=== PATIENT | male | born 1960 | race Caucasian/White ===

== ENCOUNTER 2018-11-26 08:55 | Observation (INO) | payer MEDICAID ==
[2018-11-26] MEDS ORDERED: Sodium Chloride 0.9% 10 ML Syringe FLUSH PRN (08:57)
[2018-11-26] MEDS ORDERED: Sodium Chloride 0.9% 2.5 ML Syringe FLUSH PRN (08:57)
[2018-11-26] MEDS ORDERED: Sodium Chloride 0.9% 1,000 ML IV ONE (08:57)
--- NOTE | 2018-11-26 09:22 | EDM.PDOC ---
ED HPI GENERAL MEDICAL PROBLEM - General Chief Complaint: Neurological Problem Stated Complaint: CHEST PAIN Time Seen by Provider: 11/26/18 10:18 - History of Present Illness INITIAL COMMENTS - FREE TEXT/NARRATIVE: HISTORY AND PHYSICAL: History of present illness: Patient is 58-year-old white male this hypertension who presents after an episode at work which became dizzy and fell he might pass out he was profusely diaphoretic he denies associated chest pain or shortness of breath he states he is improved significantly since arrival. Review of systems: As per history of present illness and below otherwise all systems reviewed and negative. Past medical history: As per history of present illness and as reviewed below otherwise noncontributory. Surgical history: As per history of present illness and as reviewed below otherwise noncontributory. Social history: No reported history of drug or alcohol abuse. Family history: As per history of present illness and as reviewed below otherwise noncontributory. Physical exam: HEENT: Atraumatic, normocephalic, pupils reactive, negative for conjunctival pallor or scleral icterus, mucous membranes moist, throat clear, neck supple, nontender, trachea midline. Lungs: Clear to auscultation, breath sounds equal bilaterally, chest nontender. Heart: S1S2, regular, negative for clicks, rubs, or JVD. Abdomen: Soft, nondistended, nontender. Negative for masses or hepatosplenomegaly. Negative for costovertebral tenderness. Pelvis: Stable nontender. Genitourinary: Deferred. Rectal: Deferred. Extremities: Atraumatic, negative for cords or calf pain. Neurovascular unremarkable. Neuro: Awake, alert, oriented. Cranial nerves II through XII unremarkable. Cerebellum unremarkable. Motor and sensory unremarkable throughout. Exam nonfocal. Diagnostics: CBC CMP troponin PT/INR chest x-ray EKG CT brain Therapeutics: IV O2 monitor Impression: # 1 near syncope Definitive disposition and diagnosis as appropriate pending reevaluation and review of above. Headache Pain Score (Numeric/FACES): 2 - Related Data Allergies Allergy/AdvReac Type Severity Reaction Status Date / Time No Known Allergies Allergy Verified 11/26/18 09:04 Home Meds: Home Meds Albuterol [Ventolin HFA] 1 - 2 inh INH ASDIRECTED PRN 12/22/14 [History] Aspirin [[place] Aspirin EC] 81 mg PO DAILY 12/22/14 [History] Cholecalciferol (Vitamin D3) [Vitamin D3] 1 tab PO DAILY 12/22/14 [History] Folic Acid 1 tab PO DAILY 12/22/14 [History] Hydrocodone/Acetaminophen [Hydrocodon-Acetaminophn 10-325] 1 tab PO BID [History] Iron Polysaccharide Complex [Poly-Iron] 1 tab PO DAILY 12/22/14 [History] Losartan/Hydrochlorothiazide [Losartan-HCTZ 100-12.5 MG] 1 tab PO DAILY [History] Methotrexate Sodium [Methotrexate] 6 tab PO WEEKLY 12/22/14 [History] Omeprazole [Prilosec] 1 tab PO DAILY 12/22/14 [History] amLODIPine Besylate [Amlodipine Besylate] 1 tab PO ACBREAKFAST 12/22/14 [History ] Past Medical History Other HEENT History: Reports deteriation of nasal passages 'lots of nasal drainage', Dicatation reports Obstructive Sleep apnea, pt reports "does not and never has used CPAP machine" Cardiovascular History: Reports: Hypertension Respiratory History: Reports: COPD Other Respiratory History: Tobacco dependence 40 yrs, currently down to 6 cigs per day Other Musculoskeletal History: hx: fracturing bone in hand x 2, History back injury, Low back pain; Poly arthritis Endocrine/Metabolic History: Reports: Diabetes, Type II Other Hematologic History: Microcytic anemia - Past Surgical History HEENT Surgical History: Reports: Adenoidectomy, Tonsillectomy Male Surgical History: Reports: Prostate Biopsy, Prostatectomy Social & Family History - Family History Family Medical History: Noncontributory - Tobacco Use Smoking Status *Q: Former Smoker Used Tobacco, but Quit: Yes Month/Year Tobacco Last Used: 2014 - Recreational Drug Use Recreational Drug Use: No ED ROS GENERAL - Review of Systems Review Of Systems: ROS reveals no pertinent complaints other than HPI. ED EXAM, GENERAL - Physical Exam Exam: See Below (See dictation) Course - Vital Signs Last Recorded V/S: Last Vital Signs Temp 36.0 C 11/26/18 09:01 Pulse 72 11/26/18 09:30 Resp 18 11/26/18 09:15 BP 162/58 H 11/26/18 09:30 Pulse Ox 96 11/26/18 09:30 - Orders/Labs/Meds Orders: Active Orders 24 hr Category Date Time Status EKG Documentation Completion [RC] STAT Care 11/26/18 08:58 Active UA W/MICROSCOPIC [URIN] Stat Lab 11/26/18 08:58 Ordered Sodium Chloride 0.9% [Saline Flush] Med 11/26/18 08:57 Active 10 ml FLUSH ASDIRECTED PRN Sodium Chloride 0.9% [Saline Flush] Med 11/26/18 08:57 Active 2.5 ml FLUSH ASDIRECTED PRN Saline Lock Insert [OM.PC] Stat Oth 11/26/18 08:57 Ordered Medication Orders Sodium Chloride (Saline Flush) 10 ml FLUSH ASDIRECTED PRN PRN Reason: Keep Vein Open Last Admin: 11/26/18 09:18 Dose: 10 ml Sodium Chloride (Saline Flush) 2.5 ml FLUSH ASDIRECTED PRN PRN Reason: Keep Vein Open Last Admin: 11/26/18 09:18 Dose: 2.5 ml Labs: Laboratory Tests 11/26/18 11/26/18 11/26/18 Range/Units 09:24 09:24 09:24 WBC 10.61 (4.0-11.0) K/uL RBC 5.41 (4.50-5.90) M/uL Hgb 15.3 (13.0-17.0) g/dL Hct 45.2 (38.0-50.0) % MCV 83.5 (80.0-98.0) fL MCH 28.3 (27.0-32.0) pg MCHC 33.8 (31.0-37.0) g/dL RDW Std Deviation 46.5 (28.0-62.0) fl RDW Coeff of [place]da 15 (11.0-15.0) % Plt Count 252 (150-400) K/uL MPV 9.90 (7.40-12.00) fL Neut % (Auto) 82.4 H (48.0-80.0) % Lymph % (Auto) 7.5 L (16.0-40.0) % [place] % (Auto) 9.1 (0.0-15.0) % Eos % (Auto) 0.8 (0.0-7.0) % Baso % (Auto) 0.2 (0.0-1.5) % Neut # (Auto) 8.7 H (1.4-5.7) K/uL Lymph # (Auto) 0.8 (0.6-2.4) K/uL [place] # (Auto) 1.0 H (0.0-0.8) K/uL Eos # (Auto) 0.1 (0.0-0.7) K/uL Baso # (Auto) 0.0 (0.0-0.1) K/uL Nucleated RBC % 0.0 /100WBC Nucleated RBCs # 0 K/uL INR 1.06 Sodium 143 (136-148) mmol/L Potassium 4.1 (3.5-5.1) mmol/L Chloride 107 (98-107) mmol/L Carbon Dioxide 26.7 (21.0-32.0) mmol/L BUN 13 (7.0-18.0) mg/dL Creatinine 0.8 (0.8-1.3) mg/dL Est Cr Clr Drug Dosing 91.81 mL/min Estimated GFR (MDRD) > 60.0 ml/min Glucose 137 H (74-106) mg/dL Calcium 9.4 (8.5-10.1) mg/dL Total Bilirubin 0.8 (0.2-1.0) mg/dL AST 22 (15-37) IU/L ALT 32 (14-63) IU/L Alkaline Phosphatase 87 (46-116) U/L Troponin I < 0.050 (0.000-0.056) ng/mL Total Protein 6.8 (6.4-8.2) g/dL Albumin 3.6 (3.4-5.0) g/dL Globulin 3.2 (2.6-4.0) g/dL Albumin/Globulin Ratio 1.1 (0.9-1.6) Meds: Medications Generic Name Dose Route Start Last Admin Trade Name Freq PRN Reason Stop Dose Admin Sodium Chloride 10 ml 11/26/18 08:57 11/26/18 09:18 Saline Flush FLUSH 10 ml ASDIRECTED PRN Administration Keep Vein Open Sodium Chloride 2.5 ml 11/26/18 08:57 11/26/18 09:18 Saline Flush FLUSH 2.5 ml ASDIRECTED PRN Administration Keep Vein Open Discontinued Medications Generic Name Dose Route Start Last Admin Trade Name Freq PRN Reason Stop Dose Admin Sodium Chloride 1,000 mls @ 999 mls/hr 11/26/18 08:57 11/26/18 09:18 Normal Saline IV 11/26/18 09:57 999 mls/hr BOLUS ONE Administration Departure - Departure Time of Disposition: 10:18 Disposition: Refer to Observation Condition: Good Clinical Impression: Near syncope - Discharge Information Referrals: PCP,Unknown [Primary Care Provider] - Forms: ED Department Discharge - My Orders Last 24 Hours: My Active Orders 11/26/18 08:57 Sodium Chloride 0.9% [Saline Flush] 10 ml FLUSH ASDIRECTED PRN Sodium Chloride 0.9% [Saline Flush] 2.5 ml FLUSH ASDIRECTED PRN Saline Lock Insert [OM.PC] Stat 11/26/18 08:58 EKG Documentation Completion [RC] STAT UA W/MICROSCOPIC [URIN] Stat - Assessment/Plan Last 24 Hours: My Active Orders 11/26/18 08:57 Sodium Chloride 0.9% [Saline Flush] 10 ml FLUSH ASDIRECTED PRN Sodium Chloride 0.9% [Saline Flush] 2.5 ml FLUSH ASDIRECTED PRN Saline Lock Insert [OM.PC] Stat 11/26/18 08:58 EKG Documentation Completion [RC] STAT UA W/MICROSCOPIC [URIN] Stat
[2018-11-26 10:14] LABS: BLOOD UREA NITROGEN,BUN 13 mg/dL (7.0-18.0); CARBON DIOXIDE,CO2 26.7 mmol/L (21.0-32.0); CHLORIDE,CL 107 mmol/L (98-107); GLUCOSE RANDOM 137 mg/dL (74-106); POTASSIUM,K 4.1 mmol/L (3.5-5.1); SODIUM,NA 143 mmol/L (136-148)
--- NOTE | 2018-11-26 10:15 | CR ---
INDICATION: Syncope. TECHNIQUE: Upright portable AP image of the chest. COMPARISON: 01/02/2015. FINDINGS: Lungs and pleural spaces clear. Heart, mediastinum and pulmonary vessels normal. No significant osseous abnormality. IMPRESSION: Negative chest. Dictated by Barry Padilla MD @ Nov 26 2018 10:12AM Signed by Dr. Barry Padilla @ Nov 26 2018 10:14AM
--- NOTE | 2018-11-26 10:15 | CT ---
INDICATION: Syncope. Headache. TECHNIQUE: Scanning of the head was performed without IV contrast material. COMPARISON: None. FINDINGS: No acute hemorrhage, parenchymal attenuation abnormality, or mass effect is demonstrated. Differentiation between the maldonado matter and white matter is preserved. The ventricles and other subarachnoid spaces are within normal limits for the patient`s age. No calvarial abnormality is evident. The visualized paranasal and mastoid sinuses are clear. IMPRESSION: Negative noncontrast head CT. Please note that all CT scans at this facility use dose modulation, iterative reconstruction, and/or weight-based dosing when appropriate to reduce radiation dose to as low as reasonably achievable. Dictated by Barry Padilla MD @ Nov 26 2018 10:10AM Signed by Dr. Barry Padilla @ Nov 26 2018 10:12AM
--- NOTE | 2018-11-26 10:57 | PCM.HP.2 ---
<Chasity Gonzalez - Last Filed: 11/26/18 11:13> H&P History of Present Illness - General Date of Service: 11/26/18 Admit Problem/Dx: Admission Diagnosis/Problem Admission Diagnosis/Problem Near syncope - History of Present Illness Initial Comments - Free Text/Narative: The patient is a 58 year old male with PMH of DMII, HTN, and COPD who presented with near syncope. 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 He forgot to take his medications this morning. He denies headache, fever/chills, chest pain, shortness of breath or abdominal pain. He does endorse watery diarrhea for 1 day. He also reports a lot stress with recent of his parents. He follows with Dr. Francis and reports his last hemoglobin A1c was 6.2%. Denies history of stroke or [place]. In the ER, work up included CBC, CMP, troponin within any significant findings. CXR showed no acute cardiopulmonary process. CT head showed no intracranial findings. He was given IVF in the ER. He reports elevated BP with systolic in the 190s on presentation which improved to systolic in 140s without intervention. PCP- Dr. Francis Headache Pain Score (Numeric/FACES): 2 - Related Data Allergies/Adverse Reactions: Allergies Allergy/AdvReac Type Severity Reaction Status Date / Time No Known Allergies Allergy Verified 11/26/18 11:31 Home Medications: Home Meds Aspirin [[place] Aspirin EC] 81 mg PO DAILY 12/22/14 [History] Cholecalciferol (Vitamin D3) [Vitamin D3] 1 tab PO DAILY 12/22/14 [History] Folic Acid 1 tab PO DAILY 12/22/14 [History] Methotrexate Sodium [Methotrexate] 6 tab PO WEEKLY 12/22/14 [History] amLODIPine Besylate [Amlodipine Besylate] 10 mg PO ACBREAKFAST 12/22/14 [History ] Losartan/Hydrochlorothiazide [Losartan-HCTZ 100-25 MG] 1 tab PO DAILY 11/26/18 [ History] Past Medical History Other HEENT History: Reports deteriation of nasal passages 'lots of nasal drainage', Dicatation reports Obstructive Sleep apnea, pt reports "does not and never has used CPAP machine" Cardiovascular History: Reports: Hypertension Respiratory History: Reports: COPD Other Respiratory History: Tobacco dependence 40 yrs, currently down to 6 cigs per day Other Musculoskeletal History: hx: fracturing bone in hand x 2, History back injury, Low back pain; Poly arthritis Endocrine/Metabolic History: Reports: Diabetes, Type II Other Hematologic History: Microcytic anemia - Past Surgical History HEENT Surgical History: Reports: Adenoidectomy, Tonsillectomy Male Surgical History: Reports: Prostate Biopsy, Prostatectomy Social & Family History - Family History Family Medical History: Noncontributory - Tobacco Use Smoking Status *Q: Former Smoker Used Tobacco, but Quit: Yes Month/Year Tobacco Last Used: 2014 - Alcohol Use Alcohol Use History: No - Recreational Drug Use Recreational Drug Use: No H&P Review of Systems - Review of Systems: Review Of Systems: See Below General: Reports: Diaphoresis. Denies: Fever, Chills HEENT: Reports: No Symptoms Pulmonary: Reports: No Symptoms Cardiovascular: Reports: No Symptoms Gastrointestinal: Reports: Diarrhea. Denies: Abdominal Pain, Constipation, Nausea Genitourinary: Reports: No Symptoms Musculoskeletal: Reports: No Symptoms Skin: Reports: No Symptoms Psychiatric: Reports: No Symptoms Neurological: Reports: Other (near syncope) Hematologic/Lymphatic: Reports: No Symptoms Immunologic: Reports: No Symptoms Exam - Exam Exam: See Below - Vital Signs Vital Signs: Last Vital Signs Temp 96.8 F 11/26/18 09:01 Pulse 72 11/26/18 09:30 Resp 18 11/26/18 09:15 BP 162/58 H 11/26/18 09:30 Pulse Ox 96 11/26/18 09:30 Weight: 107.048 kg - Exam General: Alert, Oriented, Cooperative HEENT: Conjunctiva Clear, EOMI, Mucosa Moist & [place], Posterior Pharynx Clear, Pupils Equal, Pupils Reactive Neck: Supple Lungs: Clear to Auscultation, Normal Respiratory Effort Cardiovascular: Regular Rate, Regular Rhythm GI/Abdominal Exam: Normal Bowel Sounds, Soft, Non-Tender, No Distention Extremities: No Pedal Edema Skin: Warm, Dry, Intact Neurological: Strength Equal Bilateral Neuro Extensive - Mental Status: Alert, Oriented x3, Normal Mood/Affect Neuro Extensive - Motor, Sensory, Reflexes: CN II-XII Intact Psychiatric: Alert, Normal Affect, Normal Mood - Patient Data Lab Results Last 24 hrs: Laboratory Results - last 24 hr 11/26/18 11/26/18 11/26/18 Range/Units 09:24 09:24 09:24 WBC 10.61 (4.0-11.0) K/uL RBC 5.41 (4.50-5.90) M/uL Hgb 15.3 (13.0-17.0) g/dL Hct 45.2 (38.0-50.0) % MCV 83.5 (80.0-98.0) fL MCH 28.3 (27.0-32.0) pg MCHC 33.8 (31.0-37.0) g/dL RDW Std Deviation 46.5 (28.0-62.0) fl RDW Coeff of [place] 15 (11.0-15.0) % Plt Count 252 (150-400) K/uL MPV 9.90 (7.40-12.00) fL Neut % (Auto) 82.4 H (48.0-80.0) % Lymph % (Auto) 7.5 L (16.0-40.0) % [place] % (Auto) 9.1 (0.0-15.0) % Eos % (Auto) 0.8 (0.0-7.0) % Baso % (Auto) 0.2 (0.0-1.5) % Neut # (Auto) 8.7 H (1.4-5.7) K/uL Lymph # (Auto) 0.8 (0.6-2.4) K/uL [place] # (Auto) 1.0 H (0.0-0.8) K/uL Eos # (Auto) 0.1 (0.0-0.7) K/uL Baso # (Auto) 0.0 (0.0-0.1) K/uL Nucleated RBC % 0.0 /100WBC Nucleated RBCs # 0 K/uL INR 1.06 Sodium 143 (136-148) mmol/L Potassium 4.1 (3.5-5.1) mmol/L Chloride 107 (98-107) mmol/L Carbon Dioxide 26.7 (21.0-32.0) mmol/L BUN 13 (7.0-18.0) mg/dL Creatinine 0.8 (0.8-1.3) mg/dL Est Cr Clr Drug Dosing 91.81 mL/min Estimated GFR (MDRD) > 60.0 ml/min Glucose 137 H (74-106) mg/dL Calcium 9.4 (8.5-10.1) mg/dL Total Bilirubin 0.8 (0.2-1.0) mg/dL AST 22 (15-37) IU/L ALT 32 (14-63) IU/L Alkaline Phosphatase 87 (46-116) U/L Troponin I < 0.050 (0.000-0.056) ng/mL Total Protein 6.8 (6.4-8.2) g/dL Albumin 3.6 (3.4-5.0) g/dL Globulin 3.2 (2.6-4.0) g/dL Albumin/Globulin Ratio 1.1 (0.9-1.6) Result Diagrams: 11/26/18 09:24 11/26/18 09:24 Problem List Initiated/Reviewed/Updated: Yes Orders Last 24hrs: Active Orders 24 hr Category Date Time Status Patient Status [ADT] Stat ADT 11/26/18 10:20 Active EKG Documentation Completion [RC] STAT Care 11/26/18 08:58 Active UA W/MICROSCOPIC [URIN] Stat Lab 11/26/18 08:58 Ordered Sodium Chloride 0.9% [Saline Flush] Med 11/26/18 08:57 Active 10 ml FLUSH ASDIRECTED PRN Sodium Chloride 0.9% [Saline Flush] Med 11/26/18 08:57 Active 2.5 ml FLUSH ASDIRECTED PRN Saline Lock Insert [OM.PC] Stat Oth 11/26/18 08:57 Ordered Medication Orders Sodium Chloride (Saline Flush) 10 ml FLUSH ASDIRECTED PRN PRN Reason: Keep Vein Open Last Admin: 11/26/18 09:18 Dose: 10 ml Sodium Chloride (Saline Flush) 2.5 ml FLUSH ASDIRECTED PRN PRN Reason: Keep Vein Open Last Admin: 11/26/18 09:18 Dose: 2.5 ml Assessment/Plan Comment:: 1. Admit for observation 2. Code status-Full 3. Vitals per routine 4. I/Os per routine 5. Diet- Diabetic 6. DVT prophylaxis with lovenox 7. Near syncope-possibility due to hypoglycemia vs cardiac arrhythmia vs HTN- Will get CTA of head, obtain orthostatic BPs, monitor on telemetry 8. Diarrhea- obtain stool studies, continue IVF 9.HTN- continue home meds 10. DMII- hold metformin, place on sliding scale and accuchecks <Lb Rivas - Last Filed: 11/26/18 16:36> H&P History of Present Illness - General Admit Problem/Dx: Admission Diagnosis/Problem Admission Diagnosis/Problem Near syncope I have seen and examined the patient independently of chief medical director, Dr. Carlos DO. I have reviewed and agree with the plan of care as outlined for this patient by her. I have discussed the case with her. Please see orders. Exam - Vital Signs Vital Signs: Last Vital Signs Temp 36.8 C 11/26/18 14:57 Pulse 70 11/26/18 14:57 Resp 16 11/26/18 14:57 BP 150/73 H 11/26/18 14:57 Pulse Ox 97 11/26/18 14:57 Orthostatic Blood Pressure [ 164/69 Standing] Orthostatic Blood Pressure [ 163/71 Sitting] Orthostatic Blood Pressure [ 219/68 Supine] - Patient Data Lab Results Last 24 hrs: Laboratory Results - last 24 hr 11/26/18 11/26/18 11/26/18 Range/Units 09:24 09:24 09:24 WBC 10.61 (4.0-11.0) K/uL RBC 5.41 (4.50-5.90) M/uL Hgb 15.3 (13.0-17.0) g/dL Hct 45.2 (38.0-50.0) % MCV 83.5 (80.0-98.0) fL MCH 28.3 (27.0-32.0) pg MCHC 33.8 (31.0-37.0) g/dL RDW Std Deviation 46.5 (28.0-62.0) fl RDW Coeff of [place] 15 (11.0-15.0) % Plt Count 252 (150-400) K/uL MPV 9.90 (7.40-12.00) fL Neut % (Auto) 82.4 H (48.0-80.0) % Lymph % (Auto) 7.5 L (16.0-40.0) % [place] % (Auto) 9.1 (0.0-15.0) % Eos % (Auto) 0.8 (0.0-7.0) % Baso % (Auto) 0.2 (0.0-1.5) % Neut # (Auto) 8.7 H (1.4-5.7) K/uL Lymph # (Auto) 0.8 (0.6-2.4) K/uL [place] # (Auto) 1.0 H (0.0-0.8) K/uL Eos # (Auto) 0.1 (0.0-0.7) K/uL Baso # (Auto) 0.0 (0.0-0.1) K/uL Nucleated RBC % 0.0 /100WBC Nucleated RBCs # 0 K/uL INR 1.06 Sodium 143 (136-148) mmol/L Potassium 4.1 (3.5-5.1) mmol/L Chloride 107 (98-107) mmol/L Carbon Dioxide 26.7 (21.0-32.0) mmol/L BUN 13 (7.0-18.0) mg/dL Creatinine 0.8 (0.8-1.3) mg/dL Est Cr Clr Drug Dosing 91.81 mL/min Estimated GFR (MDRD) > 60.0 ml/min Glucose 137 H (74-106) mg/dL POC Glucose (60-110) mg/dL Calcium 9.4 (8.5-10.1) mg/dL Total Bilirubin 0.8 (0.2-1.0) mg/dL AST 22 (15-37) IU/L ALT 32 (14-63) IU/L Alkaline Phosphatase 87 (46-116) U/L Troponin I < 0.050 (0.000-0.056) ng/mL Total Protein 6.8 (6.4-8.2) g/dL Albumin 3.6 (3.4-5.0) g/dL Globulin 3.2 (2.6-4.0) g/dL Albumin/Globulin Ratio 1.1 (0.9-1.6) Urine Color Urine Appearance Urine pH (5.0-8.0) Ur Specific [place] (1.001-1.035) Urine Protein (NEGATIVE) mg/dL Urine Glucose (UA) (NEGATIVE) mg/dL Urine Ketones (NEGATIVE) mg/dL Urine Occult Blood (NEGATIVE) Urine Nitrite (NEGATIVE) Urine Bilirubin (NEGATIVE) Urine Urobilinogen (<2.0) EU/dL Ur Leukocyte Esterase (NEGATIVE) Urine RBC (0-2/HPF) Urine WBC (0-5/HPF) Ur Epithelial Cells (NONE-FEW) Urine Bacteria (NEGATIVE) Urine Mucus (NONE-MOD) 11/26/18 11/26/18 11/26/18 Range/Units 12:02 12:30 16:25 WBC (4.0-11.0) K/uL RBC (4.50-5.90) M/uL Hgb (13.0-17.0) g/dL Hct (38.0-50.0) % MCV (80.0-98.0) fL MCH (27.0-32.0) pg MCHC (31.0-37.0) g/dL RDW Std Deviation (28.0-62.0) fl RDW Coeff of [place] (11.0-15.0) % Plt Count (150-400) K/uL MPV (7.40-12.00) fL Neut % (Auto) (48.0-80.0) % Lymph % (Auto) (16.0-40.0) % [place] % (Auto) (0.0-15.0) % Eos % (Auto) (0.0-7.0) % Baso % (Auto) (0.0-1.5) % Neut # (Auto) (1.4-5.7) K/uL Lymph # (Auto) (0.6-2.4) K/uL [place] # (Auto) (0.0-0.8) K/uL Eos # (Auto) (0.0-0.7) K/uL Baso # (Auto) (0.0-0.1) K/uL Nucleated RBC % /100WBC Nucleated RBCs # K/uL INR Sodium (136-148) mmol/L Potassium (3.5-5.1) mmol/L Chloride (98-107) mmol/L Carbon Dioxide (21.0-32.0) mmol/L BUN (7.0-18.0) mg/dL Creatinine (0.8-1.3) mg/dL Est Cr Clr Drug Dosing mL/min Estimated GFR (MDRD) ml/min Glucose (74-106) mg/dL POC Glucose 100 134 H (60-110) mg/dL Calcium (8.5-10.1) mg/dL Total Bilirubin (0.2-1.0) mg/dL AST (15-37) IU/L ALT (14-63) IU/L Alkaline Phosphatase (46-116) U/L Troponin I (0.000-0.056) ng/mL Total Protein (6.4-8.2) g/dL Albumin (3.4-5.0) g/dL Globulin (2.6-4.0) g/dL Albumin/Globulin Ratio (0.9-1.6) Urine Color YELLOW Urine Appearance CLEAR Urine pH 6.5 (5.0-8.0) Ur Specific [place] 1.025 (1.001-1.035) Urine Protein NEGATIVE (NEGATIVE) mg/dL Urine Glucose (UA) NEGATIVE (NEGATIVE) mg/dL Urine Ketones TRACE H (NEGATIVE) mg/dL Urine Occult Blood NEGATIVE (NEGATIVE) Urine Nitrite NEGATIVE (NEGATIVE) Urine Bilirubin NEGATIVE (NEGATIVE) Urine Urobilinogen 1.0 (<2.0) EU/dL Ur Leukocyte Esterase NEGATIVE (NEGATIVE) Urine RBC 0-1 (0-2/HPF) Urine WBC 0-2 (0-5/HPF) Ur Epithelial Cells RARE (NONE-FEW) Urine Bacteria FEW (NEGATIVE) Urine Mucus MODERATE (NONE-MOD) Result Diagrams: 11/26/18 09:24 11/26/18 09:24 Orders Last 24hrs: Active Orders 24 hr Category Date Time Status Patient Status [ADT] Stat ADT 11/26/18 10:20 Active Accu Check [Blood Glucose Check, Bedside] [RC] TIDMEALS Care 11/26/18 11:09 Active Cardiac Monitoring [RC] . DIRECTED Care 11/26/18 11:07 Active EKG Documentation Completion [RC] STAT Care 11/26/18 08:58 Active Intake and Output [RC] Q12H Care 11/26/18 11:07 Active Orthostatic Vital Signs [RC] ASDIRECTED Care 11/26/18 11:07 Active Vital Signs [RC] Q4H Care 11/26/18 11:07 Active [place] Diet [DIET] Diet 11/26/18 Dinner Active BASIC METABOLIC PANEL,BMP [CHEM] AM Lab 11/27/18 05:11 Ordered CBC WITH AUTO DIFF [HEME] AM Lab 11/27/18 05:11 Ordered CDIFF TOX A+B [OP] Routine Lab 11/26/18 11:07 Ordered CULTURE STOOL + CAMPY+SHIGATOX [RM] Routine Lab 11/26/18 11:07 Ordered Albuterol [Ventolin HFA] Med 11/26/18 11:10 Active 0 gm INH Q4H PRN Enoxaparin [Lovenox] Med 11/26/18 11:15 Active 40 mg SUBCUT Q24H Folic Acid Med 11/26/18 11:15 Active 1 mg PO DAILY Hydrochlorothiazide/Losartan [Hyzaar 50-12.5 MG] Med 11/26/18 14:35 Active 2 tab PO DAILY Insulin Aspart [NovoLOG] Med 11/26/18 11:30 Active See Protocol SUBCUT TIDAC Iron Polysaccharides Complex [Ferrex 150] Med 11/26/18 11:15 Active 150 mg PO DAILY Omeprazole Med 11/26/18 11:15 Active 20 mg PO DAILY Sodium Chloride 0.9% [Normal Saline] 1,000 ml Med 11/26/18 11:15 Active IV ASDIRECTED Sodium Chloride 0.9% [Saline Flush] Med 11/26/18 08:57 Active 10 ml FLUSH ASDIRECTED PRN Sodium Chloride 0.9% [Saline Flush] Med 11/26/18 08:57 Active 2.5 ml FLUSH ASDIRECTED PRN amLODIPine [Norvasc] Med 11/26/18 14:35 Active 10 mg PO ACBREAKFAST Isolation [COMM] Stat Oth 11/26/18 11:08 Ordered Saline Lock Insert [OM.PC] Stat Oth 11/26/18 08:57 Ordered Resuscitation Status Routine Resus Stat 11/26/18 11:07 Ordered Medication Orders Albuterol (Ventolin Hfa) 0 gm INH Q4H PRN PRN Reason: Shortness of Breath Amlodipine Besylate (Norvasc) 10 mg PO ACBREAKFAST GENET Last Admin: 11/26/18 14:56 Dose: 10 mg Enoxaparin Sodium (Lovenox) 40 mg SUBCUT Q24H [facility]ET Last Admin: 11/26/18 11:52 Dose: 40 mg Folic Acid (Folic Acid) 1 mg PO DAILY [facility] Last Admin: 11/26/18 11:51 Dose: 1 mg HCTZ/Losartan Potassium (Hyzaar 50-12.5 Mg) 2 tab PO DAILY [facility] Last Admin: 11/26/18 14:55 Dose: 2 tab Sodium Chloride (Normal Saline) 1,000 mls @ 125 mls/hr IV ASDIRECTED [facility] Last Admin: 11/26/18 11:32 Dose: 125 mls/hr Insulin Aspart (Novolog) 0 unit SUBCUT TIDAC [facility]; Protocol Last Admin: 11/26/18 16:32 Dose: Not Given Admin: 11/26/18 12:19 Dose: Not Given Omeprazole (Omeprazole) 20 mg PO DAILY [facility] Last Admin: 11/26/18 11:52 Dose: 20 mg Polysaccharide Iron Complex (Ferrex 150) 150 mg PO DAILY [facility] Last Admin: 11/26/18 11:52 Dose: 150 mg Sodium Chloride (Saline Flush) 10 ml FLUSH ASDIRECTED PRN PRN Reason: Keep Vein Open Last Admin: 11/26/18 09:18 Dose: 10 ml Sodium Chloride (Saline Flush) 2.5 ml FLUSH ASDIRECTED PRN PRN Reason: Keep Vein Open Last Admin: 11/26/18 09:18 Dose: 2.5 ml
[2018-11-26] MEDS ORDERED: Albuterol 8 GM Inhaler INH PRN (11:10)
[2018-11-26] MEDS ORDERED: Iron Polysaccharides Complex 150 MG Cap PO SCH (11:15)
[2018-11-26] MEDS ORDERED: AMLODIPINE PO SCH (11:30)
[2018-11-26] MEDS: Sodium Chloride 0.9% 1,000 ML IV SCH ×2 (11:32→20:00)
[2018-11-26] MEDS: Folic Acid 1 MG Tab PO SCH (11:51)
[2018-11-26] MEDS: Omeprazole 20 MG Cap.CR PO SCH (11:52)
[2018-11-26] MEDS: Enoxaparin 40 MG/0.4 ML Syringe SUBCUT SCH (11:52)
[2018-11-26] MEDS: Insulin Aspart 100 Units/ML 3 ML Pen SUBCUT SCH ×2 (12:19→16:32)
[2018-11-26] MEDS ORDERED: Iopamidol 755 MG/ML 500 ML Multipack Bottle IVPUSH STA (13:01)
--- NOTE | 2018-11-26 13:34 | CT ---
INDICATION: Near-syncope. TECHNIQUE: CT angiography of the head with 100 cc of Isovue 370. Coronal and sagittal reformats were included. COMPARISON: Contrast CT head performed earlier in the day, 11/26/2018. FINDINGS: The bilateral anterior cerebral arteries are widely patent. A recurrent artery of [place] is noted. There is a very small anterior communicating artery. The bilateral middle cerebral arteries are widely patent. Atherosclerotic irregularity within the cavernous internal carotid arteries contributes to [id number] narrowing. Intracranial internal carotid arteries elsewhere are widely patent. Scattered atherosclerotic calcifications within the intradural vertebral arteries without significant stenosis. Basilar artery is widely patent. The bilateral posterior cerebral arteries are widely patent. The posterior communicating arteries are hypoplastic or absent. No aneurysm or vascular malformation. IMPRESSION: 1. No occlusion or high-grade stenosis of the intracranial arterial circulation. Mild to moderate narrowing of the bilateral cavernous ICA`s secondary to calcific atherosclerotic changes. Please note that all CT scans at this facility use dose modulation, iterative reconstruction, and/or weight-based dosing when appropriate to reduce radiation dose to as low as reasonably achievable. Dictated by Darwin Clemente MD @ Nov 26 2018 1:25PM Signed by Dr. Darwin Clemente @ Nov 26 2018 1:33PM
[2018-11-26] MEDS: Hydrochlorothiazide/Losartan 12.5-50 mg Tab PO SCH (14:55)
[2018-11-26] MEDS: amLODIPine 5 MG Tab PO SCH (14:56)
[2018-11-26] MEDS ORDERED: Acetaminophen 325 MG Tab PO PRN (17:30)
[2018-11-26] MEDS ORDERED: Ondansetron 4 MG/2 ML SDV IVPUSH PRN (17:31)
[2018-11-27] MEDS: Sodium Chloride 0.9% 1,000 ML IV SCH ×2 (04:16→12:11)
[2018-11-27] MEDS: amLODIPine 5 MG Tab PO SCH (06:39)
[2018-11-27 06:41] LABS: BLOOD UREA NITROGEN,BUN 6 mg/dL (7.0-18.0); CARBON DIOXIDE,CO2 26.4 mmol/L (21.0-32.0); CHLORIDE,CL 106 mmol/L (98-107); GLUCOSE RANDOM 149 mg/dL (74-106); POTASSIUM,K 3.6 mmol/L (3.5-5.1); SODIUM,NA 141 mmol/L (136-148)
[2018-11-27] MEDS: Insulin Aspart 100 Units/ML 3 ML Pen SUBCUT SCH ×2 (07:33→14:36)
[2018-11-27] MEDS: Omeprazole 20 MG Cap.CR PO SCH (09:15)
[2018-11-27] MEDS: Hydrochlorothiazide/Losartan 12.5-50 mg Tab PO SCH (09:15)
[2018-11-27] MEDS: Folic Acid 1 MG Tab PO SCH (09:16)
[2018-11-27] MEDS: Enoxaparin 40 MG/0.4 ML Syringe SUBCUT SCH (11:32)
[2018-11-27] MEDS ORDERED: Losartan 50 MG Tab PO SCH (13:00)
[2018-11-27 13:40] VITALS: BP 160/70
--- NOTE | 2018-11-27 15:44 | PCM.DCSUM1 ---
<Jose Son - Last Filed: 11/27/18 15:38> Discharge Summary - Hospital Course Free Text/Narrative:: Discharge summary Admission date: November 27, 2018 Discharge date: November 28, 2018 Admission diagnoses:near syncope: possibly secondary to hypoglycemia versus cardiac arrhythmia versus hypertension Diarrhea Hypertension Type 2 diabetes Discharge diagnoses: diarrhea with dehydration secondary to Campylobacter:improving near syncope most likely secondary to hypoglycemia:improving Past medical history of hypertension, type 2 diabetes procedures: none Consultations: none Hospital course: Pt. is a 58-year-old male with past medical history of type 2 diabetes hypertension,, COPD, arthritis presented to [facility] ED with a near-syncope. Patient was at work when he noticed that he was feeling diaphoretic and dizzy and noticed his vision was getting darker. Patient otherwise denies any fevers, chills, body aches, chest pain, shortness of breath. Does endorse diarrhea for 1 week. On admission patient was given fluid, found to have elevated blood pressure; patient was restarted home medication with resolution of his blood pressure and tachycardia. CTA head: within normal limits. Stool studies showed Campylobacter; following morning patient was stable; initiated on azithromycin 500 mg daily 3 days. Advised to not miss medication dosages, and to avoid work for one week secondary to Campylobacter infection. patient endorses missing/ forgetting to take his home medications. Repeat orthostatics were within normal limits. Advised to followed PCP within 1 week. discharge instructions: patient was followed physical 1 week. Advised to contact notify provider if symptoms of fever, chills, bodies, dizziness, headache, chest pain, shortness of breath develop. Follow-up: patient was followed PCP within 1-2 weeks. Discharge medications: Aspirin [[place] Aspirin EC] 81 mg PO DAILY 12/22/14 [History] Cholecalciferol (Vitamin D3) [Vitamin D3] 1 tab PO DAILY 12/22/14 [History] Folic Acid 1 tab PO DAILY 12/22/14 [History] Methotrexate Sodium [Methotrexate] 6 tab PO WEEKLY 12/22/14 [History] amLODIPine Besylate [Amlodipine Besylate] 10 mg PO ACBREAKFAST 12/22/14 [History ] Losartan/Hydrochlorothiazide [Losartan-HCTZ 100-25 MG] 1 tab PO DAILY 11/26/18 [ History] Acetaminophen [Tylenol] 650 mg PO Q4H PRN tablet 11/27/18 [Rx] Albuterol [Ventolin HFA] 0 gm INH Q4H PRN inhaler 11/27/18 [Rx] Azithromycin 500 mg PO DAILY 3 Days #3 tablet 11/27/18 [Rx] Hydrochlorothiazide/Losartan [Hyzaar 50-12.5 MG] 2 tab PO DAILY tablet [Rx] Omeprazole 20 mg PO DAILY cap.cr 11/27/18 [Rx] - Discharge Data Discharge Date: 11/27/18 Discharge Disposition: Home, Self-Care 01 Condition: Good - Patient Instructions Driving: Do Not Drive Notify Provider of: Fever, Increased Pain, Swelling and Redness, Drainage, Nausea and/or Vomiting Other/Special Instructions: patient advised to notify provider if symptoms of fever, chills, body aches, low blood sugar, sweats or diarrhea not resolving after one week. Advised to also contact provider of chest pain or shortness of breath to develop. advised to drink plenty of fluids as well and to avoid others especially at work because of he diarrhea. Patient is not allowed to go back to work for one week or until diarrhea completely resolves. Patient advised to eat 3 meals a day; not to miss doses of medications; and to follow with PCP within one week. - Discharge Plan *PRESCRIPTION DRUG MONITORING PROGRAM REVIEWED*: No *COPY OF PRESCRIPTION DRUG MONITORING REPORT IN PATIENT ROSE: No Prescriptions/Med Rec: Azithromycin 500 mg PO DAILY 3 Days #3 tablet Home Medications: Home Meds Aspirin [[place] Aspirin EC] 81 mg PO DAILY 12/22/14 [History] Cholecalciferol (Vitamin D3) [Vitamin D3] 1 tab PO DAILY 12/22/14 [History] Folic Acid 1 tab PO DAILY 12/22/14 [History] Methotrexate Sodium [Methotrexate] 6 tab PO WEEKLY 12/22/14 [History] amLODIPine Besylate [Amlodipine Besylate] 10 mg PO ACBREAKFAST 12/22/14 [History ] Losartan/Hydrochlorothiazide [Losartan-HCTZ 100-25 MG] 1 tab PO DAILY 11/26/18 [ History] Acetaminophen [Tylenol] 650 mg PO Q4H PRN tablet 11/27/18 [Rx] Albuterol [Ventolin HFA] 0 gm INH Q4H PRN inhaler 11/27/18 [Rx] Azithromycin 500 mg PO DAILY 3 Days #3 tablet 11/27/18 [Rx] Hydrochlorothiazide/Losartan [Hyzaar 50-12.5 MG] 2 tab PO DAILY tablet [Rx] Omeprazole 20 mg PO DAILY cap.cr 11/27/18 [Rx] Patient Handouts: Near-Syncope, Campylobacter Gastroenteritis, Azithromycin tablets Forms: ED Department Discharge Referrals: PCP,Unknown [Primary Care Provider] - (Please call [facility] on Thursday and make a 'hospital follow up' appointment with your primary care physician for 7-10 days from now. ([phone])) - Discharge Summary/Plan Comment DC Time >30 min.: No - Patient Data Vitals - Most Recent: Last Vital Signs Temp 98.1 F 11/27/18 12:00 Pulse 62 11/27/18 13:39 Resp 16 11/27/18 12:00 BP 160/70 H 11/27/18 13:39 Pulse Ox 93 L 11/27/18 12:00 Orthostatic Blood Pressure [ 164/69 Standing] Orthostatic Blood Pressure [ 163/71 Sitting] Orthostatic Blood Pressure [ 219/68 Supine] Weight - Most Recent: 108 kg I&O - Last 24 hours: Intake & Output 11/27/18 11/27/18 11/27/18 06:59 14:59 22:59 Intake Total 2173 Output Total 2425 Balance -252 Lab Results - Last 24 hrs: Laboratory Results - last 24 hr 11/26/18 11/27/18 11/27/18 Range/Units 16:25 05:50 05:50 WBC 8.82 (4.0-11.0) K/uL RBC 5.32 (4.50-5.90) M/uL Hgb 14.7 (13.0-17.0) g/dL Hct 44.4 (38.0-50.0) % MCV 83.5 (80.0-98.0) fL MCH 27.6 (27.0-32.0) pg MCHC 33.1 (31.0-37.0) g/dL RDW Std Deviation 46.3 (28.0-62.0) fl RDW Coeff of [place] 15 (11.0-15.0) % Plt Count 241 (150-400) K/uL MPV 10.00 (7.40-12.00) fL Neut % (Auto) 83.8 H (48.0-80.0) % Lymph % (Auto) 9.5 L (16.0-40.0) % [place] % (Auto) 5.3 (0.0-15.0) % Eos % (Auto) 1.2 (0.0-7.0) % Baso % (Auto) 0.2 (0.0-1.5) % Neut # (Auto) 7.4 H (1.4-5.7) K/uL Lymph # (Auto) 0.8 (0.6-2.4) K/uL [place] # (Auto) 0.5 (0.0-0.8) K/uL Eos # (Auto) 0.1 (0.0-0.7) K/uL Baso # (Auto) 0.0 (0.0-0.1) K/uL Nucleated RBC % 0.0 /100WBC Nucleated RBCs # 0 K/uL Sodium 141 (136-148) mmol/L Potassium 3.6 (3.5-5.1) mmol/L Chloride 106 (98-107) mmol/L Carbon Dioxide 26.4 (21.0-32.0) mmol/L BUN 6 L (7.0-18.0) mg/dL Creatinine 0.7 L (0.8-1.3) mg/dL Est Cr Clr Drug Dosing 104.92 mL/min Estimated GFR (MDRD) > 60.0 ml/min Glucose 149 H (74-106) mg/dL POC Glucose 134 H (60-110) mg/dL Calcium 8.9 (8.5-10.1) mg/dL 11/27/18 Range/Units 12:32 WBC (4.0-11.0) K/uL RBC (4.50-5.90) M/uL Hgb (13.0-17.0) g/dL Hct (38.0-50.0) % MCV (80.0-98.0) fL MCH (27.0-32.0) pg MCHC (31.0-37.0) g/dL RDW Std Deviation (28.0-62.0) fl RDW Coeff of [place] (11.0-15.0) % Plt Count (150-400) K/uL MPV (7.40-12.00) fL Neut % (Auto) (48.0-80.0) % Lymph % (Auto) (16.0-40.0) % [place] % (Auto) (0.0-15.0) % Eos % (Auto) (0.0-7.0) % Baso % (Auto) (0.0-1.5) % Neut # (Auto) (1.4-5.7) K/uL Lymph # (Auto) (0.6-2.4) K/uL [place] # (Auto) (0.0-0.8) K/uL Eos # (Auto) (0.0-0.7) K/uL Baso # (Auto) (0.0-0.1) K/uL Nucleated RBC % /100WBC Nucleated RBCs # K/uL Sodium (136-148) mmol/L Potassium (3.5-5.1) mmol/L Chloride (98-107) mmol/L Carbon Dioxide (21.0-32.0) mmol/L BUN (7.0-18.0) mg/dL Creatinine (0.8-1.3) mg/dL Est Cr Clr Drug Dosing mL/min Estimated GFR (MDRD) ml/min Glucose (74-106) mg/dL POC Glucose 96 (60-110) mg/dL Calcium (8.5-10.1) mg/dL JACQUELYN Results - Last 24 hrs: Microbiology 11/26/18 17:45 Campylobacter Antigen Assay - Final Stool / Feces Positive Campylobacter Ag Shiga Toxin I - Final NEGATIVE FOR SHIGA TOXIN 1 REFERENCE RANGE: NEGATIVE Shiga Toxin II - Final NEGATIVE FOR SHIGA TOXIN 2 REFERENCE RANGE: NEGATIVE 11/26/18 17:45 Clostridium difficile Toxin A & B - Final Stool / Feces Negative for C.Diff Toxin/AG REFERENCE RANGE: NEGATIVE Med Orders - Current: Current Medications Acetaminophen (Tylenol) 650 mg PO Q4H PRN PRN Reason: Pain/Fever Albuterol (Ventolin Hfa) 0 gm INH Q4H PRN PRN Reason: Shortness of Breath Amlodipine Besylate (Norvasc) 10 mg PO ACBREAKFAST [facility] Last Admin: 11/27/18 06:39 Dose: 10 mg Enoxaparin Sodium (Lovenox) 40 mg SUBCUT Q24H [facility] Last Admin: 11/27/18 11:32 Dose: 40 mg Folic Acid (Folic Acid) 1 mg PO DAILY [facility] Last Admin: 11/27/18 09:16 Dose: 1 mg HCTZ/Losartan Potassium (Hyzaar 50-12.5 Mg) 2 tab PO DAILY [facility] Last Admin: 11/27/18 09:15 Dose: 2 tab Sodium Chloride (Normal Saline) 1,000 mls @ 125 mls/hr IV ASDIRECTED [facility] Last Admin: 11/27/18 12:11 Dose: 125 mls/hr Insulin Aspart (Novolog) 0 unit SUBCUT TIDAC [facility]; Protocol Last Admin: 11/27/18 14:36 Dose: Not Given Omeprazole (Omeprazole) 20 mg PO DAILY [facility] Last Admin: 11/27/18 09:15 Dose: 20 mg Ondansetron HCl (Zofran) 4 mg IVPUSH Q4H PRN PRN Reason: Nausea/Vomiting Sodium Chloride (Saline Flush) 10 ml FLUSH ASDIRECTED PRN PRN Reason: Keep Vein Open Last Admin: 11/26/18 09:18 Dose: 10 ml Sodium Chloride (Saline Flush) 2.5 ml FLUSH ASDIRECTED PRN PRN Reason: Keep Vein Open Last Admin: 11/26/18 09:18 Dose: 2.5 ml Discontinued Medications Sodium Chloride (Normal Saline) 1,000 mls @ 999 mls/hr IV BOLUS ONE Stop: 11/26/18 09:57 Last Admin: 11/26/18 09:18 Dose: 999 mls/hr Iopamidol (Isovue Multipack-370 (76%)) 100 ml IVPUSH ONETIME STA Stop: 11/26/18 13:02 Last Admin: 11/26/18 13:02 Dose: 100 ml Non-Formulary Medication (Amlodipine) 1 tab PO ACBREAKFAST [facility] Last Admin: 11/26/18 12:52 Dose: Not Given Non-Formulary Medication (Losartan/Hydrochlorothiazide [Losartan-Hctz 100-12.5 Mg]) 1 tab PO DAILY [facility] Last Admin: 11/26/18 12:51 Dose: Not Given Non-Formulary Medication (Losartan/Hydrochlorothiazide [Losartan-Hctz 100-25 Mg] ) 1 tab PO DAILY [facility] Last Admin: 11/26/18 14:28 Dose: Not Given Polysaccharide Iron Complex (Ferrex 150) 150 mg PO DAILY [facility] Last Admin: 11/26/18 11:52 Dose: 150 mg <Lb Rivas - Last Filed: 11/27/18 15:52> Discharge Summary - Hospital Course HPI Initial Comments: I have examined the patient independently of medical artist, Dr. Huy MD. I have discussed the case with him. I have reviewed and agree with the plan of care as outlined for the patient by him. Please see orders. - Patient Data Vitals - Most Recent: Last Vital Signs Temp 36.7 C 11/27/18 12:00 Pulse 62 11/27/18 13:39 Resp 16 11/27/18 12:00 BP 160/70 H 11/27/18 13:39 Pulse Ox 93 L 11/27/18 12:00 Orthostatic Blood Pressure [ 164/69 Standing] Orthostatic Blood Pressure [ 163/71 Sitting] Orthostatic Blood Pressure [ 219/68 Supine] I&O - Last 24 hours: Intake & Output 11/27/18 11/27/18 11/27/18 06:59 14:59 22:59 Intake Total 2173 Output Total 2425 Balance -252 Lab Results - Last 24 hrs: Laboratory Results - last 24 hr 11/26/18 11/27/18 11/27/18 Range/Units 16:25 05:50 05:50 WBC 8.82 (4.0-11.0) K/uL RBC 5.32 (4.50-5.90) M/uL Hgb 14.7 (13.0-17.0) g/dL Hct 44.4 (38.0-50.0) % MCV 83.5 (80.0-98.0) fL MCH 27.6 (27.0-32.0) pg MCHC 33.1 (31.0-37.0) g/dL RDW Std Deviation 46.3 (28.0-62.0) fl RDW Coeff of [place] 15 (11.0-15.0) % Plt Count 241 (150-400) K/uL MPV 10.00 (7.40-12.00) fL Neut % (Auto) 83.8 H (48.0-80.0) % Lymph % (Auto) 9.5 L (16.0-40.0) % [place] % (Auto) 5.3 (0.0-15.0) % Eos % (Auto) 1.2 (0.0-7.0) % Baso % (Auto) 0.2 (0.0-1.5) % Neut # (Auto) 7.4 H (1.4-5.7) K/uL Lymph # (Auto) 0.8 (0.6-2.4) K/uL [place] # (Auto) 0.5 (0.0-0.8) K/uL Eos # (Auto) 0.1 (0.0-0.7) K/uL Baso # (Auto) 0.0 (0.0-0.1) K/uL Nucleated RBC % 0.0 /100WBC Nucleated RBCs # 0 K/uL Sodium 141 (136-148) mmol/L Potassium 3.6 (3.5-5.1) mmol/L Chloride 106 (98-107) mmol/L Carbon Dioxide 26.4 (21.0-32.0) mmol/L BUN 6 L (7.0-18.0) mg/dL Creatinine 0.7 L (0.8-1.3) mg/dL Est Cr Clr Drug Dosing 104.92 mL/min Estimated GFR (MDRD) > 60.0 ml/min Glucose 149 H (74-106) mg/dL POC Glucose 134 H (60-110) mg/dL Calcium 8.9 (8.5-10.1) mg/dL 11/27/18 11/27/18 Range/Units 12:32 15:37 WBC (4.0-11.0) K/uL RBC (4.50-5.90) M/uL Hgb (13.0-17.0) g/dL Hct (38.0-50.0) % MCV (80.0-98.0) fL MCH (27.0-32.0) pg MCHC (31.0-37.0) g/dL RDW Std Deviation (28.0-62.0) fl RDW Coeff of O[place]da (11.0-15.0) % Plt Count (150-400) K/uL MPV (7.40-12.00) fL Neut % (Auto) (48.0-80.0) % Lymph % (Auto) (16.0-40.0) % [place] % (Auto) (0.0-15.0) % Eos % (Auto) (0.0-7.0) % Baso % (Auto) (0.0-1.5) % Neut # (Auto) (1.4-5.7) K/uL Lymph # (Auto) (0.6-2.4) K/uL [place] # (Auto) (0.0-0.8) K/uL Eos # (Auto) (0.0-0.7) K/uL Baso # (Auto) (0.0-0.1) K/uL Nucleated RBC % /100WBC Nucleated RBCs # K/uL Sodium (136-148) mmol/L Potassium (3.5-5.1) mmol/L Chloride (98-107) mmol/L Carbon Dioxide (21.0-32.0) mmol/L BUN (7.0-18.0) mg/dL Creatinine (0.8-1.3) mg/dL Est Cr Clr Drug Dosing mL/min Estimated GFR (MDRD) ml/min Glucose (74-106) mg/dL POC Glucose 96 165 H (60-110) mg/dL Calcium (8.5-10.1) mg/dL JACQUELYN Results - Last 24 hrs: Microbiology 11/26/18 17:45 Campylobacter Antigen Assay - Final Stool / Feces Positive Campylobacter Ag Shiga Toxin I - Final NEGATIVE FOR SHIGA TOXIN 1 REFERENCE RANGE: NEGATIVE Shiga Toxin II - Final NEGATIVE FOR SHIGA TOXIN 2 REFERENCE RANGE: NEGATIVE 11/26/18 17:45 Clostridium difficile Toxin A & B - Final Stool / Feces Negative for C.Diff Toxin/AG REFERENCE RANGE: NEGATIVE Med Orders - Current: Current Medications Acetaminophen (Tylenol) 650 mg PO Q4H PRN PRN Reason: Pain/Fever Albuterol (Ventolin Hfa) 0 gm INH Q4H PRN PRN Reason: Shortness of Breath Amlodipine Besylate (Norvasc) 10 mg PO ACBREAKFAST [facility] Last Admin: 11/27/18 06:39 Dose: 10 mg Enoxaparin Sodium (Lovenox) 40 mg SUBCUT Q24H [facility] Last Admin: 11/27/18 11:32 Dose: 40 mg Folic Acid (Folic Acid) 1 mg PO DAILY [facility] Last Admin: 11/27/18 09:16 Dose: 1 mg HCTZ/Losartan Potassium (Hyzaar 50-12.5 Mg) 2 tab PO DAILY [facility] Last Admin: 11/27/18 09:15 Dose: 2 tab Sodium Chloride (Normal Saline) 1,000 mls @ 125 mls/hr IV ASDIRECTED [facility] Last Admin: 11/27/18 12:11 Dose: 125 mls/hr Insulin Aspart (Novolog) 0 unit SUBCUT TIDAC [facility]; Protocol Last Admin: 11/27/18 14:36 Dose: Not Given Omeprazole (Omeprazole) 20 mg PO DAILY [facility] Last Admin: 11/27/18 09:15 Dose: 20 mg Ondansetron HCl (Zofran) 4 mg IVPUSH Q4H PRN PRN Reason: Nausea/Vomiting Sodium Chloride (Saline Flush) 10 ml FLUSH ASDIRECTED PRN PRN Reason: Keep Vein Open Last Admin: 11/26/18 09:18 Dose: 10 ml Sodium Chloride (Saline Flush) 2.5 ml FLUSH ASDIRECTED PRN PRN Reason: Keep Vein Open Last Admin: 11/26/18 09:18 Dose: 2.5 ml Discontinued Medications Sodium Chloride (Normal Saline) 1,000 mls @ 999 mls/hr IV BOLUS ONE Stop: 11/26/18 09:57 Last Admin: 11/26/18 09:18 Dose: 999 mls/hr Iopamidol (Isovue Multipack-370 (76%)) 100 ml IVPUSH ONETIME STA Stop: 11/26/18 13:02 Last Admin: 11/26/18 13:02 Dose: 100 ml Non-Formulary Medication (Amlodipine) 1 tab PO ACBREAKFAST [facility] Last Admin: 11/26/18 12:52 Dose: Not Given Non-Formulary Medication (Losartan/Hydrochlorothiazide [Losartan-Hctz 100-12.5 Mg]) 1 tab PO DAILY [facility] Last Admin: 11/26/18 12:51 Dose: Not Given Non-Formulary Medication (Losartan/Hydrochlorothiazide [Losartan-Hctz 100-25 Mg] ) 1 tab PO DAILY [facility] Last Admin: 11/26/18 14:28 Dose: Not Given Polysaccharide Iron Complex (Ferrex 150) 150 mg PO DAILY [facility] Last Admin: 11/26/18 11:52 Dose: 150 mg
== END 2018-11-27 16:00 | disposition home or self-care (01) ==
LOC: MW.ED 08:55 → MW.MS 10:37
PROVIDERS: ADMIT Internal Medicine; ATTEND Internal Medicine
DX: R55 Syncope and collapse (principal); A04.5 Campylobacter enteritis; E86.0 Dehydration; I10 Essential (primary) hypertension; E11.9 Type 2 diabetes mellitus without complications; J44.9 Chronic obstructive pulmonary disease, unspecified; M19.90 Unspecified osteoarthritis, unspecified site; Z87.891 Personal history of nicotine dependence; Z79.82 Long term (current) use of aspirin; Z79.899 Other long term (current) drug therapy
CPT/HCPCS: 36415; 70450; 70496; 71045; 80048; 80053; 81001; 82962; 84484; 85025; 85610; 87046; 87324; 87899; 93005; 94660; 96360; 99285; A9270; J1650; J7040; Q9967; 96361; 96372; G0378

== ENCOUNTER 2019-01-07 10:45 | Observation (INO) | payer OTHER ==
[2019-01-07] MEDS ORDERED: Sodium Chloride 0.9% 1,000 ML IV ONE (11:06)
--- NOTE | 2019-01-07 11:11 | EDM.PDOC ---
ED HPI GENERAL MEDICAL PROBLEM - General Chief Complaint: Skin Complaint Stated Complaint: RASH Time Seen by Provider: 01/07/19 11:01 - History of Present Illness INITIAL COMMENTS - FREE TEXT/NARRATIVE: HISTORY AND PHYSICAL: History of present illness: Patient is a 58-year-old white male who presents with concern of rash on his right forearm with erythema and proximal extension worse over last several days he denies fever chills nausea vomiting he is currently on Augmentin for upper respiratory infection as prescribed by Dr. 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 Review of systems: As per history of present illness and below otherwise all systems reviewed and negative. Past medical history: As per history of present illness and as reviewed below otherwise noncontributory. Surgical history: As per history of present illness and as reviewed below otherwise noncontributory. Social history: No reported history of drug or alcohol abuse. Family history: As per history of present illness and as reviewed below otherwise noncontributory. Physical exam: HEENT: Atraumatic, normocephalic, pupils reactive, negative for conjunctival pallor or scleral icterus, mucous membranes moist, throat clear, neck supple, nontender, trachea midline. Lungs: Clear to auscultation, breath sounds equal bilaterally, chest nontender. Heart: S1S2, regular, negative for clicks, rubs, or JVD. Abdomen: Soft, nondistended, nontender. Negative for masses or hepatosplenomegaly. Negative for costovertebral tenderness. Pelvis: Stable nontender. Genitourinary: Deferred. Rectal: Deferred. Extremities: Patient has a 4 x 7 area of erythema right forearm volar aspect with lymphangitic spread proximally to the level of the elbow CMS neurovascular exam is unremarkable Neuro: Awake, alert, oriented. Cranial nerves II through XII unremarkable. Cerebellum unremarkable. Motor and sensory unremarkable throughout. Exam nonfocal. Diagnostics: CBC CMP blood culture 2 lactic acid x-ray right forearm Therapeutics: Saline 1 L bolus Impression: #1 cellulitis right forearm with ascending lymphangitis Definitive disposition and diagnosis as appropriate pending reevaluation and review of above. right forearm Pain Score (Numeric/FACES): 10 - Related Data Allergies Allergy/AdvReac Type Severity Reaction Status Date / Time No Known Allergies Allergy Verified 01/07/19 10:55 Home Meds: Home Meds Aspirin [[place] Aspirin EC] 81 mg PO DAILY 12/22/14 [History] Cholecalciferol (Vitamin D3) [Vitamin D3] 1 tab PO DAILY 12/22/14 [History] Folic Acid 1 tab PO DAILY 12/22/14 [History] Methotrexate Sodium [Methotrexate] 6 tab PO WEEKLY 12/22/14 [History] amLODIPine Besylate [Amlodipine Besylate] 10 mg PO ACBREAKFAST 12/22/14 [History ] Losartan/Hydrochlorothiazide [Losartan-HCTZ 100-25 MG] 1 tab PO DAILY 11/26/18 [ History] Acetaminophen [Tylenol] 650 mg PO Q4H PRN tablet 11/27/18 [Rx] Albuterol [Ventolin HFA] 0 gm INH Q4H PRN inhaler 11/27/18 [Rx] Hydrochlorothiazide/Losartan [Hyzaar 50-12.5 MG] 2 tab PO DAILY tablet [Rx] Omeprazole 20 mg PO DAILY cap.cr 11/27/18 [Rx] Amoxicillin/Clavulanate K [Augmentin 875-125 MG] 1 tab ASDIRECTED 01/07/19 [ History] Past Medical History Other HEENT History: Reports deteriation of nasal passages 'lots of nasal drainage', Dicatation reports Obstructive Sleep apnea Cardiovascular History: Reports: Hypertension Respiratory History: Reports: COPD Other Respiratory History: Tobacco dependence 40 yrs Musculoskeletal History: Reports: Other (See Below) Other Musculoskeletal History: hx: fracturing bone in hand x 2, History back injury, Low back pain; Poly arthritis Endocrine/Metabolic History: Reports: Diabetes, Type II Other Hematologic History: Microcytic anemia Oncologic (Cancer) History: Reports: Prostate - Past Surgical History HEENT Surgical History: Reports: Adenoidectomy, Tonsillectomy Cardiovascular Surgical History: Reports: None GI Surgical History: Reports: Colonoscopy, EGD Male Surgical History: Reports: Prostate Biopsy, Prostatectomy Social & Family History - Family History Family Medical History: Noncontributory - Tobacco Use Smoking Status *Q: Former Smoker Used Tobacco, but Quit: Yes Month/Year Tobacco Last Used: 2014 - Caffeine Use Caffeine Use: Reports: Coffee - Recreational Drug Use Recreational Drug Use: No ED ROS GENERAL - Review of Systems Review Of Systems: ROS reveals no pertinent complaints other than HPI. ED EXAM, SKIN/RASH Exam: See Below (See dictation) Course - Vital Signs Last Recorded V/S: Last Vital Signs Temp 36.2 C 01/07/19 10:52 Pulse 77 01/07/19 10:52 Resp 18 01/07/19 10:52 BP 160/82 H 01/07/19 10:52 Pulse Ox 95 01/07/19 10:52 - Orders/Labs/Meds Orders: Active Orders 24 hr Category Date Time Status COMPREHENSIVE METABOLIC PN,CMP [CHEM] Stat Lab 01/07/19 11:40 Received CULTURE BLOOD [BC] Stat Lab 01/07/19 11:40 Received CULTURE BLOOD [BC] Stat Lab 01/07/19 12:03 Received Blood Culture x2 Reflex Set [OM.PC] Stat Oth 01/07/19 11:06 Ordered Labs: Laboratory Tests 01/07/19 01/07/19 Range/Units 11:40 11:40 WBC 9.29 (4.0-11.0) K/uL RBC 5.11 (4.50-5.90) M/uL Hgb 14.6 (13.0-17.0) g/dL Hct 42.8 (38.0-50.0) % MCV 83.8 (80.0-98.0) fL MCH 28.6 (27.0-32.0) pg MCHC 34.1 (31.0-37.0) g/dL RDW Std Deviation 44.6 (28.0-62.0) fl RDW Coeff of [place] 15 (11.0-15.0) % Plt Count 261 (150-400) K/uL MPV 10.30 (7.40-12.00) fL Neut % (Auto) 79.9 (48.0-80.0) % Lymph % (Auto) 8.1 L (16.0-40.0) % E[place] % (Auto) 9.8 (0.0-15.0) % Eos % (Auto) 1.8 (0.0-7.0) % Baso % (Auto) 0.4 (0.0-1.5) % Neut # (Auto) 7.4 H (1.4-5.7) K/uL Lymph # (Auto) 0.8 (0.6-2.4) K/uL Emanuel # (Auto) 0.9 H (0.0-0.8) K/uL Eos # (Auto) 0.2 (0.0-0.7) K/uL Baso # (Auto) 0.0 (0.0-0.1) K/uL Nucleated RBC % 0.0 /100WBC Nucleated RBCs # 0 K/uL Lactate 1.1 (0.20-2.00) mmol/L Meds: Medications Discontinued Medications Generic Name Dose Route Start Last Admin Trade Name Freq PRN Reason Stop Dose Admin Sodium Chloride 1,000 mls @ 999 mls/hr 01/07/19 11:06 01/07/19 11:28 Normal Saline IV 01/07/19 12:06 999 mls/hr STAT ONE Administration Departure - Departure Time of Disposition: 12:10 Disposition: Refer to Observation Condition: Good Clinical Impression: Cellulitis, Ascending lymphangitis - Discharge Information Referrals: Gabriel Francis MD [Primary Care Provider] - Forms: ED Department Discharge - My Orders Last 24 Hours: My Active Orders 01/07/19 11:06 Blood Culture x2 Reflex Set [OM.PC] Stat 01/07/19 11:40 COMPREHENSIVE METABOLIC PN,CMP [CHEM] Stat CULTURE BLOOD [BC] Stat 01/07/19 12:03 CULTURE BLOOD [BC] Stat - Assessment/Plan Last 24 Hours: My Active Orders 01/07/19 11:06 Blood Culture x2 Reflex Set [OM.PC] Stat 01/07/19 11:40 COMPREHENSIVE METABOLIC PN,CMP [CHEM] Stat CULTURE BLOOD [BC] Stat 01/07/19 12:03 CULTURE BLOOD [BC] Stat
--- NOTE | 2019-01-07 12:00 | CR ---
Right forearm: Two views of the right forearm were obtained. Comparison: No previous forearm study. Soft tissue swelling appears to be present. No acute fracture or other abnormality is seen. Impression: 1. Soft tissue swelling. 2. Note acute bony abnormality is seen. Diagnostic code #2 MTDD
[2019-01-07 12:14] LABS: BLOOD UREA NITROGEN,BUN 11 mg/dL (7.0-18.0); CARBON DIOXIDE,CO2 27.4 mmol/L (21.0-32.0); CHLORIDE,CL 102 mmol/L (98-107); GLUCOSE RANDOM 122 mg/dL (74-106); POTASSIUM,K 3.2 mmol/L (3.5-5.1); SODIUM,NA 139 mmol/L (136-148)
[2019-01-07] MEDS ORDERED: Albuterol 8 GM Inhaler INH PRN (15:05)
[2019-01-07] MEDS ORDERED: Acetaminophen 325 MG Tab PO PRN (15:05)
[2019-01-07] MEDS ORDERED: cefTRIAXone 1 GM in Premix Bag 1 BAG IV ONE (15:06)
[2019-01-07] MEDS ORDERED: Potassium Chloride 20 MEQ Tab.ER PO ONE (15:09)
--- NOTE | 2019-01-07 15:10 | PCM.HP.2 ---
H&P History of Present Illness - General Date of Service: 01/07/19 Admit Problem/Dx: Admission Diagnosis/Problem Admission Diagnosis/Problem Cellulitis - History of Present Illness Initial Comments - Free Text/Narative: 58 yo male with pmh of DMII, HTN, and COPD, arthritis who presents with two day history of rash on right arm. Patient reported a quater size spot of erythema on his arm yesterday that expanded to be about 4 cm by 3 cm area on the ventral aspect of his arm. He currently is taking Augmentin for a respiratory tract infection which he says has clear up. He denies any fevers or chills. He denies any trauma to the arm. right forearm Pain Score (Numeric/FACES): 10 - Related Data Allergies/Adverse Reactions: Allergies Allergy/AdvReac Type Severity Reaction Status Date / Time No Known Allergies Allergy Verified 01/07/19 10:55 Home Medications: Home Meds Aspirin [[place] Aspirin EC] 81 mg PO DAILY 12/22/14 [History] Cholecalciferol (Vitamin D3) [Vitamin D3] 1 tab PO DAILY 12/22/14 [History] Folic Acid 1 tab PO DAILY 12/22/14 [History] Methotrexate Sodium [Methotrexate] 6 tab PO WEEKLY 12/22/14 [History] amLODIPine Besylate [Amlodipine Besylate] 10 mg PO ACBREAKFAST 12/22/14 [History ] Losartan/Hydrochlorothiazide [Losartan-HCTZ 100-25 MG] 1 tab PO DAILY 11/26/18 [ History] Acetaminophen [Tylenol] 650 mg PO Q4H PRN tablet 11/27/18 [Rx] Albuterol [Ventolin HFA] 0 gm INH Q4H PRN inhaler 11/27/18 [Rx] Hydrochlorothiazide/Losartan [Hyzaar 50-12.5 MG] 2 tab PO DAILY tablet [Rx] Omeprazole 20 mg PO DAILY cap.cr 11/27/18 [Rx] Amoxicillin/Clavulanate K [Augmentin 875-125 MG] 1 tab ASDIRECTED 01/07/19 [ History] Past Medical History Other HEENT History: Reports deteriation of nasal passages 'lots of nasal drainage', Dicatation reports Obstructive Sleep apnea Cardiovascular History: Reports: Hypertension Respiratory History: Reports: COPD Other Respiratory History: Tobacco dependence 40 yrs Musculoskeletal History: Reports: Other (See Below) Other Musculoskeletal History: hx: fracturing bone in hand x 2, History back injury, Low back pain; Poly arthritis Endocrine/Metabolic History: Reports: Diabetes, Type II Other Hematologic History: Microcytic anemia Oncologic (Cancer) History: Reports: Prostate - Past Surgical History HEENT Surgical History: Reports: Adenoidectomy, Tonsillectomy Cardiovascular Surgical History: Reports: None GI Surgical History: Reports: Colonoscopy, EGD Male Surgical History: Reports: Prostate Biopsy, Prostatectomy Social & Family History - Family History Family Medical History: Noncontributory - Tobacco Use Smoking Status *Q: Former Smoker Used Tobacco, but Quit: Yes Month/Year Tobacco Last Used: 2014 Second Hand Smoke Exposure: Yes - Caffeine Use Caffeine Use: Reports: Coffee, Soda - Recreational Drug Use Recreational Drug Use: No H&P Review of Systems - Review of Systems: Review Of Systems: ROS reveals no pertinent complaints other than HPI. Exam - Exam Exam: See Below - Vital Signs Vital Signs: Last Vital Signs Temp 36.2 C 01/07/19 12:40 Pulse 65 01/07/19 12:40 Resp 17 01/07/19 12:40 BP 165/75 H 01/07/19 12:40 Pulse Ox 95 01/07/19 12:40 Weight: 110.087 kg - Exam General: Alert, Oriented HEENT: Mucosa Moist & [place] Neck: Supple Lungs: Clear to Auscultation, Normal Respiratory Effort Cardiovascular: Regular Rate, Regular Rhythm GI/Abdominal Exam: Soft, Non-Tender Extremities: Non-Tender, No Pedal Edema Skin: Other (4 by 3 cm area of erythema over ventral right forarm) - Patient Data Lab Results Last 24 hrs: Laboratory Results - last 24 hr 01/07/19 01/07/19 01/07/19 Range/Units 11:40 11:40 11:40 WBC 9.29 (4.0-11.0) K/uL RBC 5.11 (4.50-5.90) M/uL Hgb 14.6 (13.0-17.0) g/dL Hct 42.8 (38.0-50.0) % MCV 83.8 (80.0-98.0) fL MCH 28.6 (27.0-32.0) pg MCHC 34.1 (31.0-37.0) g/dL RDW Std Deviation 44.6 (28.0-62.0) fl RDW Coeff of [place] 15 (11.0-15.0) % Plt Count 261 (150-400) K/uL MPV 10.30 (7.40-12.00) fL Neut % (Auto) 79.9 (48.0-80.0) % Lymph % (Auto) 8.1 L (16.0-40.0) % [place] % (Auto) 9.8 (0.0-15.0) % Eos % (Auto) 1.8 (0.0-7.0) % Baso % (Auto) 0.4 (0.0-1.5) % Neut # (Auto) 7.4 H (1.4-5.7) K/uL Lymph # (Auto) 0.8 (0.6-2.4) K/uL [place] # (Auto) 0.9 H (0.0-0.8) K/uL Eos # (Auto) 0.2 (0.0-0.7) K/uL Baso # (Auto) 0.0 (0.0-0.1) K/uL Nucleated RBC % 0.0 /100WBC Nucleated RBCs # 0 K/uL Lactate 1.1 (0.20-2.00) mmol/L Sodium 139 (136-148) mmol/L Potassium 3.2 L (3.5-5.1) mmol/L Chloride 102 (98-107) mmol/L Carbon Dioxide 27.4 (21.0-32.0) mmol/L BUN 11 (7.0-18.0) mg/dL Creatinine 0.7 L (0.8-1.3) mg/dL Est Cr Clr Drug Dosing 104.92 mL/min Estimated GFR (MDRD) > 60.0 ml/min Glucose 122 H (74-106) mg/dL Calcium 9.0 (8.5-10.1) mg/dL Total Bilirubin 0.6 (0.2-1.0) mg/dL AST 34 (15-37) IU/L ALT 58 (14-63) IU/L Alkaline Phosphatase 86 (46-116) U/L Total Protein 7.2 (6.4-8.2) g/dL Albumin 3.5 (3.4-5.0) g/dL Globulin 3.7 (2.6-4.0) g/dL Albumin/Globulin Ratio 0.9 (0.9-1.6) Result Diagrams: 01/07/19 11:40 01/07/19 11:40 Problem List Initiated/Reviewed/Updated: Yes Orders Last 24hrs: Active Orders 24 hr Category Date Time Status Patient Status [ADT] Stat ADT 01/07/19 12:11 Active Antiembolic Devices [RC] PER UNIT ROUTINE Care 01/07/19 15:08 Ordered Blood Glucose Check, Bedside [RC] TIDMEALS Care 01/07/19 15:08 Ordered Oxygen Therapy [RC] PRN Care 01/07/19 15:08 Ordered Up ad Linsey [RC] ASDIRECTED Care 01/07/19 15:08 Ordered VTE/DVT Education [RC] PER UNIT ROUTINE Care 01/07/19 15:08 Ordered Vital Signs [RC] Q4H Care 01/07/19 15:08 Ordered [place] [employer] Diet [DIET] Diet 01/07/19 Breakfast Ordered BASIC METABOLIC PANEL,BMP [CHEM] AM Lab 01/08/19 05:11 Ordered CBC WITH AUTO DIFF [HEME] AM Lab 01/08/19 05:11 Ordered CULTURE BLOOD [BC] Stat Lab 01/07/19 11:40 Received CULTURE BLOOD [BC] Stat Lab 01/07/19 12:03 Received Acetaminophen [Tylenol] Med 01/07/19 15:05 Ordered 650 mg PO Q4H PRN Albuterol [Ventolin HFA] Med 01/07/19 15:05 Ordered 1 gm INH Q4H PRN Aspirin [Halfprin] Med 01/08/19 09:00 Ordered 81 mg PO DAILY Insulin Aspart [NovoLOG] Med 01/07/19 17:00 Ordered See Protocol SUBCUT TIDAC Losartan/Hydrochlorothiazide [Losartan-HCTZ 100-25 MG] Med 01/08/19 09:00 Ordered 1 tab PO DAILY Omeprazole Med 01/08/19 09:00 Ordered 20 mg PO DAILY Pharmacy to Dose - Vancomycin Med 01/07/19 15:15 Ordered 1 dose .XX ASDIRECTED Potassium Chloride [Klor-Con M20] Med 01/07/19 15:09 Once 40 meq PO ONETIME ONE amLODIPine Med 01/08/19 07:30 Ordered 10 mg PO ACBREAKFAST cefTRIAXone [Rocephin] 1 gm Med 01/07/19 15:06 Ordered Sodium Chloride 0.9% [Normal Saline] 50 ml IV ONETIME Blood Culture x2 Reflex Set [OM.PC] Stat Oth 01/07/19 11:06 Ordered Sequential Compression Device [OM.PC] Per Unit Routine Oth 01/07/19 15:08 Ordered Resuscitation Status Routine Resus Stat 01/07/19 15:08 Ordered Medication Orders Acetaminophen (Tylenol) 650 mg PO Q4H PRN PRN Reason: Pain/Fever Albuterol (Ventolin Hfa) 1 gm INH Q4H PRN PRN Reason: Shortness of Breath Aspirin (Halfprin) 81 mg PO DAILY [facility] Ceftriaxone Sodium 1 gm/ (Sodium Chloride) 50 mls @ 100 mls/hr IV ONETIME ONE Stop: 01/07/19 15:35 Insulin Aspart (Novolog) 0 unit SUBCUT TIDAC [facility]; Protocol Non-Formulary Medication (Amlodipine) 10 mg PO ACBREAKFAST [facility] Non-Formulary Medication (Losartan/Hydrochlorothiazide [Losartan-Hctz 100-25 Mg] ) 1 tab PO DAILY [facility] Omeprazole (Omeprazole) 20 mg PO DAILY [facility] Potassium Chloride (Klor-Con M20) 40 meq PO ONETIME ONE Stop: 01/07/19 15:10 Vancomycin HCl (Pharmacy To Dose - Vancomycin) 1 dose .XX ASDIRECTED [facility] Assessment/Plan Comment:: 58 yo male admitted for right arm cellulitis. We will treat with Vancomycin.
[2019-01-07] MEDS: Insulin Aspart 100 Units/ML 3 ML Pen SUBCUT SCH (17:01)
[2019-01-08 07:14] LABS: BLOOD UREA NITROGEN,BUN 8 mg/dL (7.0-18.0); CARBON DIOXIDE,CO2 28.2 mmol/L (21.0-32.0); CHLORIDE,CL 104 mmol/L (98-107); GLUCOSE RANDOM 151 mg/dL (74-106); POTASSIUM,K 4.1 mmol/L (3.5-5.1); SODIUM,NA 139 mmol/L (136-148)
[2019-01-08] MEDS ORDERED: amLODIPine 5 MG Tab PO SCH (07:30)
[2019-01-08] MEDS ORDERED: Omeprazole 20 MG Cap.CR PO SCH (07:30)
--- NOTE | 2019-01-08 07:56 | PCM.DCSUM1 ---
Discharge Summary - Hospital Course HPI Initial Comments: The patient was admitted secondary to cellulitis of his right forearm which failed outpatient treatment with the use of Augmentin. Diagnosis: Stroke: No - Discharge Data Discharge Date: 01/09/19 Discharge Disposition: Home, Self-Care 01 Condition: Fair - Referral to Home Health Primary Care Physician: Gabriel Francis MD - Discharge Diagnosis/Problem(s) (1) Cellulitis SNOMED Code(s): 716563242 ICD Code: L03.90 - CELLULITIS, UNSPECIFIED Status: Resolved Priority: High Qualifiers: Site of cellulitis of extremity: upper extremity Laterality: right (2) Diabetes mellitus type 2 in obese SNOMED Code(s): 78829792 ICD Code: E11.69 - TYPE 2 DIABETES MELLITUS WITH OTHER SPECIFIED COMPLICATION ; E66.9 - OBESITY, UNSPECIFIED Status: Chronic Priority: Medium (3) Obesity (BMI 30-39.9) SNOMED Code(s): 774162133, 697569417 ICD Code: E66.9 - OBESITY, UNSPECIFIED Status: Chronic Priority: Medium (4) Hypertension SNOMED Code(s): 53668159 ICD Code: I10 - ESSENTIAL (PRIMARY) HYPERTENSION Status: Chronic Priority : Medium Qualifiers: Hypertension type: essential hypertension Qualified Code(s): I10 - Essential (primary) hypertension - Patient Summary/Data Hospital Course: The patient is a 58-year-old gentleman who has past medical history diabetes mellitus type 2, hypertension and COPD Presented to the emergency department with a history of rash to his right forearm. The patient had been admitted secondary to cellulitis that was localized to his right forearm. Initially it was described as a 4 x 3 cm area on the ventral aspect of his arm. The patient' s white blood cell count was 9000 and his lactate was also normal. The patient was also noted to be afebrile upon admission. A diagnosis of sepsis was not supported. Blood cultures were drawn day of admission showed no growth. The patient was initially started on ceftriaxone and he continued to improve through the short course of hospitalization. Initially the patient had hypokalemia with a level of 3.2 mmol per liter. This was corrected with the use of IV potassium. By day of discharge the patient said that he felt like he could go home. The patient was discharged on Omnicef to continue this for another 5 days. The patient has been recommended to continue with his appropriate heart healthy, ADA diet as tolerated. The patient is also to have activity as tolerated. He is to follow-up with his primary care physician. The patient had been given a work note to return to work as there was some concern that the patient had shingles. The patient's rash was not clinically shingles. The patient has been hemodynamically stable and he is been discharged from acute hospitalization with recommendations listed above. - Patient Instructions Diet: Heart Healthy Diet, Diabetic Diet Activity: As Tolerated - Discharge Plan *PRESCRIPTION DRUG MONITORING PROGRAM REVIEWED*: No *COPY OF PRESCRIPTION DRUG MONITORING REPORT IN PATIENT ROSE: No Prescriptions/Med Rec: Cefdinir [Omnicef] 300 mg PO BID #10 cap Home Medications: Home Meds Aspirin [[place] Aspirin EC] 81 mg PO DAILY 12/22/14 [History] Cholecalciferol (Vitamin D3) [Vitamin D3] 1 tab PO DAILY 12/22/14 [History] Folic Acid 1 tab PO DAILY 12/22/14 [History] Methotrexate Sodium [Methotrexate] 6 tab PO WEEKLY 12/22/14 [History] amLODIPine Besylate [Amlodipine Besylate] 10 mg PO ACBREAKFAST 12/22/14 [History ] Losartan/Hydrochlorothiazide [Losartan-HCTZ 100-25 MG] 1 tab PO DAILY 11/26/18 [ History] Acetaminophen [Tylenol] 650 mg PO Q4H PRN tablet 11/27/18 [Rx] Albuterol [Ventolin HFA] 0 gm INH Q4H PRN inhaler 11/27/18 [Rx] Hydrochlorothiazide/Losartan [Hyzaar 50-12.5 MG] 2 tab PO DAILY tablet [Rx] Omeprazole 20 mg PO DAILY cap.cr 11/27/18 [Rx] Cefdinir [Omnicef] 300 mg PO BID #10 cap 01/08/19 [Rx] Oxygen Therapy Mode: Room Air Patient Handouts: Cefdinir capsules, Cellulitis, Adult, [id number] Referrals: Gabriel Francis MD [Primary Care Provider] - (On Thursday call the clinic to make a hospital follow-up. This was not able to be done due to it being the weekend. ) - Discharge Summary/Plan Comment DC Time >30 min.: Yes - General Info Date of Service: 10/19/19 Admission Dx/Problem (Free Text: Admission Diagnosis/Problem Admission Diagnosis/Problem Cellulitis, right forearm Subjective Update: The patient is doing well. He feels like he can go home. He is denied any pain. Functional Status: Reports: Pain Controlled - Review of Systems General: Reports: No Symptoms HEENT: Reports: No Symptoms Pulmonary: Reports: No Symptoms Cardiovascular: Reports: No Symptoms Gastrointestinal: Reports: No Symptoms Genitourinary: Reports: No Symptoms Musculoskeletal: Reports: No Symptoms Skin: Reports: No Symptoms Neurological: Reports: No Symptoms Psychiatric: Reports: No Symptoms - Patient Data Vitals - Most Recent: Last Vital Signs Temp 36.4 C 01/08/19 04:00 Pulse 71 01/08/19 04:00 Resp 18 01/08/19 04:00 BP 126/72 01/08/19 06:50 Pulse Ox 93 L 01/08/19 04:00 Weight - Most Recent: 110.087 kg I&O - Last 24 hours: Intake & Output 01/07/19 01/08/19 01/08/19 22:59 06:59 14:59 Intake Total 250 Output Total 300 Balance -50 Lab Results - Last 24 hrs: Laboratory Results - last 24 hr 01/07/19 01/07/19 01/07/19 Range/Units 11:40 11:40 11:40 WBC 9.29 (4.0-11.0) K/uL RBC 5.11 (4.50-5.90) M/uL Hgb 14.6 (13.0-17.0) g/dL Hct 42.8 (38.0-50.0) % MCV 83.8 (80.0-98.0) fL MCH 28.6 (27.0-32.0) pg MCHC 34.1 (31.0-37.0) g/dL RDW Std Deviation 44.6 (28.0-62.0) fl RDW Coeff of [place] 15 (11.0-15.0) % Plt Count 261 (150-400) K/uL MPV 10.30 (7.40-12.00) fL Neut % (Auto) 79.9 (48.0-80.0) % Lymph % (Auto) 8.1 L (16.0-40.0) % [place] % (Auto) 9.8 (0.0-15.0) % Eos % (Auto) 1.8 (0.0-7.0) % Baso % (Auto) 0.4 (0.0-1.5) % Neut # (Auto) 7.4 H (1.4-5.7) K/uL Lymph # (Auto) 0.8 (0.6-2.4) K/uL [place] # (Auto) 0.9 H (0.0-0.8) K/uL Eos # (Auto) 0.2 (0.0-0.7) K/uL Baso # (Auto) 0.0 (0.0-0.1) K/uL Nucleated RBC % 0.0 /100WBC Nucleated RBCs # 0 K/uL Lactate 1.1 (0.20-2.00) mmol/L Sodium 139 (136-148) mmol/L Potassium 3.2 L (3.5-5.1) mmol/L Chloride 102 (98-107) mmol/L Carbon Dioxide 27.4 (21.0-32.0) mmol/L BUN 11 (7.0-18.0) mg/dL Creatinine 0.7 L (0.8-1.3) mg/dL Est Cr Clr Drug Dosing 104.92 mL/min Estimated GFR (MDRD) > 60.0 ml/min Glucose 122 H (74-106) mg/dL POC Glucose (60-110) mg/dL Calcium 9.0 (8.5-10.1) mg/dL Total Bilirubin 0.6 (0.2-1.0) mg/dL AST 34 (15-37) IU/L ALT 58 (14-63) IU/L Alkaline Phosphatase 86 (46-116) U/L Total Protein 7.2 (6.4-8.2) g/dL Albumin 3.5 (3.4-5.0) g/dL Globulin 3.7 (2.6-4.0) g/dL Albumin/Globulin Ratio 0.9 (0.9-1.6) 01/07/19 01/08/19 01/08/19 Range/Units 16:48 06:16 06:45 WBC 7.23 (4.0-11.0) K/uL RBC 5.24 (4.50-5.90) M/uL Hgb 14.9 (13.0-17.0) g/dL Hct 44.1 (38.0-50.0) % MCV 84.2 (80.0-98.0) fL MCH 28.4 (27.0-32.0) pg MCHC 33.8 (31.0-37.0) g/dL RDW Std Deviation 44.4 (28.0-62.0) fl RDW Coeff of [place] 15 (11.0-15.0) % Plt Count 260 (150-400) K/uL MPV 10.10 (7.40-12.00) fL Neut % (Auto) 75.8 (48.0-80.0) % Lymph % (Auto) 13.0 L (16.0-40.0) % [place] % (Auto) 8.7 (0.0-15.0) % Eos % (Auto) 2.1 (0.0-7.0) % Baso % (Auto) 0.4 (0.0-1.5) % Neut # (Auto) 5.5 (1.4-5.7) K/uL Lymph # (Auto) 0.9 (0.6-2.4) K/uL [place] # (Auto) 0.6 (0.0-0.8) K/uL Eos # (Auto) 0.2 (0.0-0.7) K/uL Baso # (Auto) 0.0 (0.0-0.1) K/uL Nucleated RBC % 0.0 /100WBC Nucleated RBCs # 0 K/uL Lactate (0.20-2.00) mmol/L Sodium (136-148) mmol/L Potassium (3.5-5.1) mmol/L Chloride (98-107) mmol/L Carbon Dioxide (21.0-32.0) mmol/L BUN (7.0-18.0) mg/dL Creatinine (0.8-1.3) mg/dL Est Cr Clr Drug Dosing mL/min Estimated GFR (MDRD) ml/min Glucose (74-106) mg/dL POC Glucose 96 145 H (60-110) mg/dL Calcium (8.5-10.1) mg/dL Total Bilirubin (0.2-1.0) mg/dL AST (15-37) IU/L ALT (14-63) IU/L Alkaline Phosphatase (46-116) U/L Total Protein (6.4-8.2) g/dL Albumin (3.4-5.0) g/dL Globulin (2.6-4.0) g/dL Albumin/Globulin Ratio (0.9-1.6) 01/08/19 Range/Units 06:45 WBC (4.0-11.0) K/uL RBC (4.50-5.90) M/uL Hgb (13.0-17.0) g/dL Hct (38.0-50.0) % MCV (80.0-98.0) fL MCH (27.0-32.0) pg MCHC (31.0-37.0) g/dL RDW Std Deviation (28.0-62.0) fl RDW Coeff of [place] (11.0-15.0) % Plt Count (150-400) K/uL MPV (7.40-12.00) fL Neut % (Auto) (48.0-80.0) % Lymph % (Auto) (16.0-40.0) % [place] % (Auto) (0.0-15.0) % Eos % (Auto) (0.0-7.0) % Baso % (Auto) (0.0-1.5) % Neut # (Auto) (1.4-5.7) K/uL Lymph # (Auto) (0.6-2.4) K/uL [place] # (Auto) (0.0-0.8) K/uL Eos # (Auto) (0.0-0.7) K/uL Baso # (Auto) (0.0-0.1) K/uL Nucleated RBC % /100WBC Nucleated RBCs # K/uL Lactate (0.20-2.00) mmol/L Sodium 139 (136-148) mmol/L Potassium 4.1 (3.5-5.1) mmol/L Chloride 104 (98-107) mmol/L Carbon Dioxide 28.2 (21.0-32.0) mmol/L BUN 8 (7.0-18.0) mg/dL Creatinine 0.8 (0.8-1.3) mg/dL Est Cr Clr Drug Dosing 91.81 mL/min Estimated GFR (MDRD) > 60.0 ml/min Glucose 151 H (74-106) mg/dL POC Glucose (60-110) mg/dL Calcium 9.0 (8.5-10.1) mg/dL Total Bilirubin (0.2-1.0) mg/dL AST (15-37) IU/L ALT (14-63) IU/L Alkaline Phosphatase (46-116) U/L Total Protein (6.4-8.2) g/dL Albumin (3.4-5.0) g/dL Globulin (2.6-4.0) g/dL Albumin/Globulin Ratio (0.9-1.6) Med Orders - Current: Current Medications Acetaminophen (Tylenol) 650 mg PO Q4H PRN PRN Reason: Pain/Fever Albuterol (Ventolin Hfa) 0 gm INH Q4H PRN PRN Reason: Shortness of Breath Amlodipine Besylate (Norvasc) 10 mg PO ACBREAKFAST [facility] Last Admin: 01/08/19 06:50 Dose: 10 mg Aspirin (Halfprin) 81 mg PO DAILY [facility] HCTZ/Losartan Potassium (Hyzaar 50-12.5 Mg) 2 tab PO DAILY [facility] Vancomycin HCl 1.25 gm/ Sodium (Chloride) 250 mls @ 250 mls/hr IV Q8H [facility] Last Admin: 01/08/19 05:07 Dose: 250 mls/hr Insulin Aspart (Novolog) 0 unit SUBCUT TIDAC [facility]; Protocol Last Admin: 01/07/19 17:01 Dose: Not Given Omeprazole (Omeprazole) 20 mg PO ACBREAKFAST [facility] Last Admin: 01/08/19 06:51 Dose: 20 mg Vancomycin HCl (Pharmacy To Dose - Vancomycin) 1 dose .XX ASDIRECTED [facility] Discontinued Medications Sodium Chloride (Normal Saline) 1,000 mls @ 999 mls/hr IV STAT ONE Stop: 01/07/19 12:06 Last Admin: 01/07/19 11:28 Dose: 999 mls/hr Vancomycin HCl 1 gm/ Sodium (Chloride) 250 mls @ 166 mls/hr IV ONETIME ONE Stop: 01/07/19 13:41 Last Admin: 01/07/19 12:43 Dose: 166 mls/hr Ceftriaxone Sodium/Dextrose 1 (gm/ Premix) 50 mls @ 100 mls/hr IV ONETIME ONE Stop: 01/07/19 15:35 Last Admin: 01/07/19 15:57 Dose: 100 mls/hr Potassium Chloride (Klor-Con M20) 40 meq PO ONETIME ONE Stop: 01/07/19 15:10 Last Admin: 01/07/19 15:57 Dose: 40 meq - Exam Quality Assessment: Denies: Supplemental Oxygen General: Reports: Alert, Oriented, Cooperative, No Acute Distress HEENT: Reports: Pupils Equal, Pupils Reactive, EOMI Neck: Reports: Supple, Trachea Midline Lungs: Reports: Clear to Auscultation, Normal Respiratory Effort Cardiovascular: Reports: Regular Rate, Regular Rhythm GI/Abdominal Exam: Normal Bowel Sounds, No Distention, Other (Obese) Extremities: Normal Inspection, No Pedal Edema Skin: Reports: Warm, Dry, Other (Area of cellulitis right posterior forearm without erythema or edema) Neurological: Reports: No New Focal Deficit, Normal Gait Psy/Mental Status: Reports: Alert, Normal Affect, Normal Mood
[2019-01-08] MEDS: Insulin Aspart 100 Units/ML 3 ML Pen SUBCUT SCH (07:57)
[2019-01-08 08:25] VITALS: BP 178/78; PULSE 59
[2019-01-08] MEDS ORDERED: Hydrochlorothiazide/Losartan 12.5-50 mg Tab PO SCH (09:00)
[2019-01-08] MEDS ORDERED: Aspirin 81 MG Tab.EC PO SCH (09:00)
== END 2019-01-08 09:15 | disposition home or self-care (01) ==
LOC: MW.ED 10:45 → MW.MS 12:19
PROVIDERS: ADMIT Internal Medicine; ATTEND Internal Medicine
DX: L03.113 Cellulitis of right upper limb (principal); E11.9 Type 2 diabetes mellitus without complications; E87.6 Hypokalemia; I10 Essential (primary) hypertension; E66.9 Obesity, unspecified; J44.9 Chronic obstructive pulmonary disease, unspecified; M19.90 Unspecified osteoarthritis, unspecified site; Z87.891 Personal history of nicotine dependence; Z79.82 Long term (current) use of aspirin; Z79.899 Other long term (current) drug therapy; Z68.38 Body mass index [BMI] 38.0-38.9, adult
CPT/HCPCS: 36415; 73090; 80048; 80053; 82962; 83605; 85025; 87040; 96361; 96365; 99284; A9270; J0696; J3370; J7040; J7050; 96366; 96375; 96376; 99283; G0378

== ENCOUNTER 2019-08-13 07:22 | Emergency (ER) | payer BC ==
--- NOTE | 2019-08-13 08:01 | EDM.PDOC ---
ED HPI GENERAL MEDICAL PROBLEM - General Chief Complaint: Allergic Reaction Stated Complaint: RASH ON BOTH ANKLES Time Seen by Provider: 08/13/19 07:31 Source of Information: Reports: Patient History Limitations: Reports: No Limitations - History of Present Illness INITIAL COMMENTS - FREE TEXT/NARRATIVE: 58-year-old male with history of diabetes, cellulitis, lymphangitis, rheumatoid arthritis on methotrexate woke up this morning with redness and mild nonradiating, constant burning pain to the bilateral ankles. Denies fever, chills, drainage, ankle injury. ROS: A 10-point review of systems, other than pertinent positives and negatives as stated per HPI, is otherwise negative PHYSICAL EXAM General: AOx4, GCS = 15, No distress HEENT: dry mucous membrane Neck: supple, no meningismus, no Kernig or Brudzinski Cardiac: S1S2 RRR Respiratory: CTAB, no crackles or rales, no wheezing Abdomen: Soft, nontender, no rebound or guarding, nondistended, no pulsatile mass. Back: nontender Musculoskeletal: NVI distally, no deformity, bilateral medial malleolus erythema and mild tenderness (left ankle 3 cm in size, right ankle 5cm in size) Neuro: No focal deficits. MEDICAL DECISION MAKING: I reviewed the patients past medical records, lab and radiographic findings. I discussed the case with family members. My differential diagnosis included: cellulitis, lymphangitis. Patient's symptoms today are consistent with early onset mild cellulitis, amendable for oral antibiotics. He has no fever, chills, I instructed patient to start oral antibiotics and return for recheck in 3 days. He has no tenderness to his bilateral calf, I do not suspect DVT, there was no injury to his ankle, I do not suspect fracture or dislocation warranting x-ray studies. There is no tenderness to the Achilles tendon, I do not suspect Achilles tendon rupture or strain. Onset: Today Ankles Pain Score (Numeric/FACES): 10 - Related Data Allergies Allergy/AdvReac Type Severity Reaction Status Date / Time No Known Allergies Allergy Verified 08/13/19 07:33 Home Meds: Home Meds Aspirin [[place] Aspirin EC] 81 mg PO DAILY 12/22/14 [History] Cholecalciferol (Vitamin D3) [Vitamin D3] 1 tab PO DAILY 12/22/14 [History] Folic Acid 1 tab PO DAILY 12/22/14 [History] Methotrexate Sodium [Methotrexate] 6 tab PO WEEKLY 12/22/14 [History] amLODIPine Besylate [Amlodipine Besylate] 10 mg PO ACBREAKFAST 12/22/14 [History ] Losartan/Hydrochlorothiazide [Losartan-HCTZ 100-25 MG] 1 tab PO DAILY 11/26/18 [ History] Chrom Nini/Brindal Villegas [Garcinia Cambogia Tablet] 1 tab PO DAILY 08/13/19 [ History] Furosemide 20 mg PO DAILY 08/13/19 [History] Gabapentin [Neurontin] 300 mg PO TID 08/13/19 [History] Glimepiride 2 mg PO DAILY 08/13/19 [History] Hydrochlorothiazide/Losartan [Hyzaar 50-12.5 MG] 1 tab PO DAILY 08/13/19 [ History] Oxybutynin 5 mg PO TID 08/13/19 [History] Rosuvastatin [Crestor] 20 mg PO DAILY 08/13/19 [History] Sulfamethoxazole/Trimethoprim [Bactrim Ds Tablet] 2 each PO BID 7 Days tablet 08/13/19 [Rx] cephALEXin [Keflex] 500 mg PO QID 7 Days capsule 08/13/19 [Rx] metFORMIN [Glucophage] 1,000 mg PO DAILY 08/13/19 [History] predniSONE [Prednisone] 10 mg PO DAILY 08/13/19 [History] Past Medical History Other HEENT History: Reports deteriation of nasal passages 'lots of nasal drainage', Dicatation reports Obstructive Sleep apnea Cardiovascular History: Reports: Hypertension Respiratory History: Reports: COPD Other Respiratory History: Tobacco dependence 40 yrs Musculoskeletal History: Reports: Other (See Below) Other Musculoskeletal History: hx: fracturing bone in hand x 2, History back injury, Low back pain; Poly arthritis Endocrine/Metabolic History: Reports: Diabetes, Type II Other Hematologic History: Microcytic anemia Oncologic (Cancer) History: Reports: Prostate - Infectious Disease History Infectious Disease History: Reports: Chicken Pox - Past Surgical History HEENT Surgical History: Reports: Adenoidectomy, Tonsillectomy Cardiovascular Surgical History: Reports: None GI Surgical History: Reports: Colonoscopy, EGD Male Surgical History: Reports: Prostate Biopsy, Prostatectomy Social & Family History - Family History Family Medical History: Noncontributory - Tobacco Use Smoking Status *Q: Never Smoker - Caffeine Use Caffeine Use: Reports: Coffee, Soda - Recreational Drug Use Recreational Drug Use: No ED ROS ALLERGIC REACTION - Review of Systems Review Of Systems: See Below (see dictation) ED EXAM GENERAL NO PERIP PULSE - Physical Exam Exam: See Below (see dictation) Course - Vital Signs Last Recorded V/S: Last Vital Signs Temp 97.7 F 08/13/19 07:33 Pulse 72 08/13/19 07:33 Resp 16 08/13/19 07:33 BP 138/79 08/13/19 07:33 Pulse Ox 98 08/13/19 07:33 - Re-Assessments/Exams Free Text/Narrative Re-Assessment/Exam: 08/13/19 08:01 Patient is stable for discharge with outpatient ABx, He demonstrated no fever or tachycardia, he has exhibited a normal gait. I advised the patient to return to the ER for reevaluation if symptoms worsened, and to return in 3 days for a recheck. Departure - Departure Time of Disposition: 08:03 Disposition: Home, Self-Care 01 Condition: Good Clinical Impression: Cellulitis - Discharge Information *PRESCRIPTION DRUG MONITORING PROGRAM REVIEWED*: Not Applicable *COPY OF PRESCRIPTION DRUG MONITORING REPORT IN PATIENT ROSE: Not Applicable Prescriptions: cephALEXin [Keflex] 500 mg PO QID 7 Days capsule Sulfamethoxazole/Trimethoprim [Bactrim Ds Tablet] 2 each PO BID 7 Days tablet Instructions: Cellulitis, Adult Referrals: Gabriel Francis MD [Primary Care Provider] - Forms: ED Department Discharge Additional Instructions: The following information is given to patients seen in the emergency department who are being discharged to home. This information is to outline your options for follow-up care. We provide all patients seen in our emergency department with a follow-up referral. The need for follow-up, as well as the timing and circumstances, are variable depending upon the specifics of your emergency department visit. In your case, please return for a repeat examination in 3 days. If you don't have a primary care physician on staff, we will provide you with a referral. We always advise you to contact your personal physician following an emergency department visit to inform them of the circumstance of the visit and for follow-up with them and/or the need for any referrals to a consulting specialist. The emergency department will also refer you to a specialist when appropriate. This referral assures that you have the opportunity for follow-up care with a specialist. All of these measure are taken in an effort to provide you with optimal care, which includes your follow-up. Under all circumstances we always encourage you to contact your private physician who remains a resource for coordinating your care. When calling for follow-up care, please make the office aware that this follow-up is from your recent emergency room visit. If for any reason you are refused follow-up, please contact the [facility] Emergency Department at and asked to speak to the emergency department charge nurse. Sepsis Event Note - Evaluation Sepsis Screening Result: No Definite Risk - Focused Exam Vital Signs: Vital Signs Temp Pulse Resp BP Pulse Ox 08/13/19 07:33 97.7 F 72 16 138/79 98 Date Exam was Performed: 08/13/19 Time Exam was Performed: 07:56
[2019-08-13 08:37] VITALS: BP 136/68; PULSE 64
== END 2019-08-13 08:20 | disposition home or self-care (01) ==
LOC: MW.ED 07:22
DX: L03.116 Cellulitis of left lower limb (principal); L03.115 Cellulitis of right lower limb; I10 Essential (primary) hypertension; J44.9 Chronic obstructive pulmonary disease, unspecified; E11.9 Type 2 diabetes mellitus without complications; Z79.82 Long term (current) use of aspirin; Z79.84 Long term (current) use of oral hypoglycemic drugs; Z79.899 Other long term (current) drug therapy
CPT/HCPCS: 99282; 99283

== ENCOUNTER 2019-08-22 05:14 | Emergency (ER) | payer BC ==
--- NOTE | 2019-08-22 05:18 | EDM.PDOC ---
ED HPI GENERAL MEDICAL PROBLEM - General Chief Complaint: Lower Extremity Injury/Pain Stated Complaint: CELLULITIS Time Seen by Provider: 08/22/19 05:16 Source of Information: Reports: Patient History Limitations: Reports: No Limitations - History of Present Illness INITIAL COMMENTS - FREE TEXT/NARRATIVE: 58-year-old male with a past medical history of type 2 diabetes mellitus, obesity, hypertension, rheumatoid arthritis on methotrexate presenting with complaints of lower extremity rash and exertional fatigue and dyspnea. Recently seen in our emergency department on August 13, 2019 diagnosed with cellulitis. Prescribed a seven-day course of Keflex and Bactrim DS. States that his cellulitis is resolved. This evening, he reports a 2-day history of small red lesions to his bilateral legs. These are itchy and also cause him to experience a burning pain sensation. No prior history of similar lesions. Currently taking low-dose prednisone, approximately 10 mg/day. Denies any epistaxis, gingival bleeding, hemoptysis, hematuria, bloody stools. No new cosmetics, soaps, garments, bedding, pets, carpets, etc. No recent camping or walking in tall grass. He also complains of 2 weeks of new onset exertional dyspnea and fatigue. He states that when he is ambulating or performing his work duties, he begins to feel very short of breath, particularly when he walks more than 100 feet at a time. There is no exertional chest pain component. Denies any chest discomfort , or history of coronary artery disease. - Related Data Allergies Allergy/AdvReac Type Severity Reaction Status Date / Time No Known Allergies Allergy Verified 08/13/19 07:33 Home Meds: Home Meds Aspirin [[place] Aspirin EC] 81 mg PO DAILY 12/22/14 [History] Cholecalciferol (Vitamin D3) [Vitamin D3] 1 tab PO DAILY 12/22/14 [History] Folic Acid 1 tab PO DAILY 12/22/14 [History] Methotrexate Sodium [Methotrexate] 6 tab PO WEEKLY 12/22/14 [History] amLODIPine Besylate [Amlodipine Besylate] 10 mg PO ACBREAKFAST 12/22/14 [History ] Furosemide 40 mg PO DAILY 08/13/19 [History] Gabapentin [Neurontin] 300 mg PO TID 08/13/19 [History] Glimepiride 2 mg PO DAILY 08/13/19 [History] Hydrochlorothiazide/Losartan [Hyzaar 50-12.5 MG] 1 tab PO DAILY 08/13/19 [ History] Oxybutynin 5 mg PO TID 08/13/19 [History] Rosuvastatin [Crestor] 20 mg PO BEDTIME 08/13/19 [History] metFORMIN [Glucophage] 1,000 mg PO BID 08/13/19 [History] predniSONE [Prednisone] 10 mg PO DAILY 08/13/19 [History] Aspirin 81 mg PO DAILY 08/22/19 [History] Past Medical History Other HEENT History: Reports deteriation of nasal passages 'lots of nasal drainage', Dicatation reports Obstructive Sleep apnea Cardiovascular History: Reports: Hypertension Respiratory History: Reports: COPD Other Respiratory History: Tobacco dependence 40 yrs Musculoskeletal History: Reports: Other (See Below) Other Musculoskeletal History: hx: fracturing bone in hand x 2, History back injury, Low back pain; Poly arthritis Endocrine/Metabolic History: Reports: Diabetes, Type II Other Hematologic History: Microcytic anemia Immunologic History: Reports: Immunosuppression Other Immunologic History: Rheumatoid arthritis on methotrexate Oncologic (Cancer) History: Reports: Prostate - Infectious Disease History Infectious Disease History: Reports: Chicken Pox - Past Surgical History HEENT Surgical History: Reports: Adenoidectomy, Tonsillectomy Cardiovascular Surgical History: Reports: None GI Surgical History: Reports: Colonoscopy, EGD Male Surgical History: Reports: Prostate Biopsy, Prostatectomy Social & Family History - Family History Family Medical History: Noncontributory - Caffeine Use Caffeine Use: Reports: Coffee, Soda Review of Systems - Review of Systems Review Of Systems: See Below Constitutional: Denies: Chills, Fever Eyes: Reports: No Symptoms Ears: Reports: No Symptoms Nose: Reports: No Symptoms Mouth/Throat: Reports: No Symptoms Respiratory: Reports: Shortness of Breath (Exertional). Denies: Pleuritic Chest Pain, Cough, Hemoptysis Cardiovascular: Denies: Chest Pain, Edema, Syncope GI/Abdominal: Reports: Constipation. Denies: Abdominal Pain, Hematemesis, Nausea, Vomiting Genitourinary: Denies: Hematuria Musculoskeletal: Reports: No Symptoms Skin: Reports: Pruritis, Lesions. Denies: Rash, Urticaria Neurological: Denies: Headache Psychiatric: Reports: No Symptoms ED EXAM, GENERAL - Physical Exam Exam: See Below Free Text/Narrative:: Vital signs reviewed. Nursing notes reviewed. Constitutional: Awake, alert, non-distressed. Head: Normocephalic, atraumatic. Eyes: EOMI, conjunctiva normal, no discharge, no scleral icterus. Ears, Nose, Throat: External ears and ears normal, moist oral mucosa. No palatal petechiae or gingival bleeding. Cardiovascular: 2+ radial pulse, capillary refill less than 2 seconds. RRR, no R/M/G Pulmonary: normal work of breathing, no accessory muscle use. CTA BL Abdomen/GI: Soft, nontender, nondistended, no guarding or rigidity, no masses. No organomegaly Musculoskeletal: No deformities. Integumentary: Appropriate color for ethnicity, warm, dry, no pallor or jaundice , no rash. Scattered petechiae to the bilateral lower extremities,extending just proximal to the ankles to the distal thighs bilaterally. Neurologic: Alert, answering questions appropriately, normal speech, no facial droop, moving all extremities well. Psychiatric: Appropriate mood and affect, normal thought process. Course - Vital Signs Text/Narrative:: Patient hemodynamically stable - mild resting tachycardia, afebrile, well- appearing, looks nontoxic. Differential diagnosis includes but is not limited to: Vasculitis, thrombocytopenia, ITP, steroid side effect, coagulopathy, anemia, acute coronary syndrome, electrolyte disturbance, renal failure, drug reaction, contact dermatitis, and many others 12-Lead ECG Interpretation Acquired: 5:35 AM Rhythm: Sinus rhythm Rate: 81 bpm [place]: Normal Intervals: Normal Ectopy: None Ischemic Changes: None apparent RV Strain: No obvious RV strain pattern. ST Segments/T-Waves: No notable changes Interpretation: Unremarkable 0543: CBC shows normal cell lines. INR normal. Twelve-lead EKG nonischemic. Awaiting troponin, TSH, CMP, chest x-rays. 0556: Electrolytes and renal function reassuring. Hepatic markers are reassuring. Negative troponin. Awaiting TSH and chest x-rays. 0614: Urinalysis bland. CXRs clear. Awaiting TSH. 0633: TSH returned within normal limits. No evidence of an acute process. Cellulitis from prior ED encounter looks resolved. No evidence of allergic reaction/allergic phenomena. No objective evidence of myocardial ischemia or congestive heart failure. Suspect mild side effect from steroids. Remainder of work-up is reassuring. Plan: Patient is stable to discharge home with outpatient primary care follow- up. Strict emergency department return precautions were provided, patient indicated understanding. All questions were answered prior to departure. Discharged in good condition. Last Recorded V/S: Last Vital Signs Temp 36.2 C 08/22/19 05:19 Pulse 101 H 08/22/19 05:19 Resp 18 08/22/19 05:19 BP 168/70 H 08/22/19 05:19 Pulse Ox 95 08/22/19 05:19 - Orders/Labs/Meds Orders: Active Orders 24 hr Category Date Time Status EKG 12 Lead [EKG Documentation Completion] [RC] STAT Care 08/22/19 05:24 Active Labs: Laboratory Tests 08/22/19 08/22/19 08/22/19 Range/Units 05:35 05:35 05:35 WBC 6.07 (4.0-11.0) K/uL RBC 4.96 (4.50-5.90) M/uL Hgb 14.2 (13.0-17.0) g/dL Hct 43.6 (38.0-50.0) % MCV 87.9 (80.0-98.0) fL MCH 28.6 (27.0-32.0) pg MCHC 32.6 (31.0-37.0) g/dL RDW Std Deviation 48.1 (28.0-62.0) fl RDW Coeff of [place] 15 (11.0-15.0) % Plt Count 234 (150-400) K/uL MPV 9.70 (7.40-12.00) fL Neut % (Auto) 76.3 (48.0-80.0) % Lymph % (Auto) 7.9 L (16.0-40.0) % [place] % (Auto) 12.7 (0.0-15.0) % Eos % (Auto) 2.6 (0.0-7.0) % Baso % (Auto) 0.5 (0.0-1.5) % Neut # (Auto) 4.6 (1.4-5.7) K/uL Lymph # (Auto) 0.5 L (0.6-2.4) K/uL [place] # (Auto) 0.8 (0.0-0.8) K/uL Eos # (Auto) 0.2 (0.0-0.7) K/uL Baso # (Auto) 0.0 (0.0-0.1) K/uL Nucleated RBC % 0.0 /100WBC Nucleated RBCs # 0 K/uL INR 0.99 Sodium 140 (136-148) mmol/L Potassium 4.0 (3.5-5.1) mmol/L Chloride 103 (98-107) mmol/L Carbon Dioxide 29.7 (21.0-32.0) mmol/L BUN 20 H (7.0-18.0) mg/dL Creatinine 0.9 (0.8-1.3) mg/dL Est Cr Clr Drug Dosing 78.77 mL/min Estimated GFR (MDRD) > 60.0 ml/min Glucose 171 H (74-106) mg/dL Calcium 9.0 (8.5-10.1) mg/dL Total Bilirubin 0.4 (0.2-1.0) mg/dL AST 28 (15-37) IU/L ALT 30 (14-63) IU/L Alkaline Phosphatase 83 (46-116) U/L Troponin I < 0.050 (0.000-0.056) ng/mL Total Protein 7.0 (6.4-8.2) g/dL Albumin 3.7 (3.4-5.0) g/dL Globulin 3.3 (2.6-4.0) g/dL Albumin/Globulin Ratio 1.1 (0.9-1.6) TSH 3rd Generation (0.36-3.74) uIU/mL Urine Color Urine Appearance Urine pH (5.0-8.0) Ur Specific [place] (1.001-1.035) Urine Protein (NEGATIVE) mg/dL Urine Glucose (UA) (NEGATIVE) mg/dL Urine Ketones (NEGATIVE) mg/dL Urine Occult Blood (NEGATIVE) Urine Nitrite (NEGATIVE) Urine Bilirubin (NEGATIVE) Urine Urobilinogen (<2.0) EU/dL Ur Leukocyte Esterase (NEGATIVE) 08/22/19 08/22/19 Range/Units 05:35 06:03 WBC (4.0-11.0) K/uL RBC (4.50-5.90) M/uL Hgb (13.0-17.0) g/dL Hct (38.0-50.0) % MCV (80.0-98.0) fL MCH (27.0-32.0) pg MCHC (31.0-37.0) g/dL RDW Std Deviation (28.0-62.0) fl RDW Coeff of [place] (11.0-15.0) % Plt Count (150-400) K/uL MPV (7.40-12.00) fL Neut % (Auto) (48.0-80.0) % Lymph % (Auto) (16.0-40.0) % [place] % (Auto) (0.0-15.0) % Eos % (Auto) (0.0-7.0) % Baso % (Auto) (0.0-1.5) % Neut # (Auto) (1.4-5.7) K/uL Lymph # (Auto) (0.6-2.4) K/uL [place] # (Auto) (0.0-0.8) K/uL Eos # (Auto) (0.0-0.7) K/uL Baso # (Auto) (0.0-0.1) K/uL Nucleated RBC % /100WBC Nucleated RBCs # K/uL INR Sodium (136-148) mmol/L Potassium (3.5-5.1) mmol/L Chloride (98-107) mmol/L Carbon Dioxide (21.0-32.0) mmol/L BUN (7.0-18.0) mg/dL Creatinine (0.8-1.3) mg/dL Est Cr Clr Drug Dosing mL/min Estimated GFR (MDRD) ml/min Glucose (74-106) mg/dL Calcium (8.5-10.1) mg/dL Total Bilirubin (0.2-1.0) mg/dL AST (15-37) IU/L ALT (14-63) IU/L Alkaline Phosphatase (46-116) U/L Troponin I (0.000-0.056) ng/mL Total Protein (6.4-8.2) g/dL Albumin (3.4-5.0) g/dL Globulin (2.6-4.0) g/dL Albumin/Globulin Ratio (0.9-1.6) TSH 3rd Generation 0.98 (0.36-3.74) uIU/mL Urine Color YELLOW Urine Appearance CLEAR Urine pH 6.5 (5.0-8.0) Ur Specific [place] 1.025 (1.001-1.035) Urine Protein NEGATIVE (NEGATIVE) mg/dL Urine Glucose (UA) NEGATIVE (NEGATIVE) mg/dL Urine Ketones NEGATIVE (NEGATIVE) mg/dL Urine Occult Blood NEGATIVE (NEGATIVE) Urine Nitrite NEGATIVE (NEGATIVE) Urine Bilirubin NEGATIVE (NEGATIVE) Urine Urobilinogen 0.2 (<2.0) EU/dL Ur Leukocyte Esterase NEGATIVE (NEGATIVE) Departure - Departure Time of Disposition: 06:34 Disposition: Home, Self-Care 01 Condition: Good Clinical Impression: Petechiae, Exertional dyspnea - Discharge Information *PRESCRIPTION DRUG MONITORING PROGRAM REVIEWED*: Not Applicable *COPY OF PRESCRIPTION DRUG MONITORING REPORT IN PATIENT ROSE: Not Applicable Instructions: Shortness of Breath, Adult, [id number] Referrals: Gabriel Francis MD [Primary Care Provider] - 1 Week (For follow-up of symptoms.) Forms: ED Department Discharge Additional Instructions: Thank you for choosing the [facility] emergency department in [place] for your medical needs today. It was a pleasure caring for you. You were seen in the emergency department for a skin problem and shortness of breath. Your labs and EKG are reassuring. Sometimes people can have these skin changes when they are on steroids for a long time. They do not seem to be dangerous at this moment. I do recommend that you follow-up with your doctor in the next 1 to 2 weeks for reevaluation, particularly for your fatigue and trouble breathing when you are walking around or performing your job duties. Please return the emergency department immediately if your symptoms worsen or if you feel worse. The following information is given to patients seen in the emergency department who are being discharged. This information is to outline your options for follow -up care. We provide all patients seen in our emergency department with a follow -up referral. The need for follow-up, as well as the timing and circumstances, are variable depending upon the specifics of your emergency department visit. If you don't have a primary care physician on staff, we will provide you with a referral. We always advise you to contact your personal physician following an emergency department visit to inform them of the circumstance of the visit and for follow-up with them and/or the need for any referrals to a consulting specialist. The emergency department will also refer you to a specialist when appropriate. This referral assures that you have the opportunity for follow-up care with a specialist. All of these measure are taken in an effort to provide you with optimal care, which includes your follow-up. Under all circumstances we always encourage you to contact your private physician who remains a resource for coordinating your care. When calling for follow-up care, please make the office aware that this follow-up is from your recent emergency room visit. If for any reason you are refused follow-up, please contact the [facility] Emergency Department at and asked to speak to the emergency department charge nurse. If you do not have a primary care physician that is caring for you, you can contact these clinics below to set up an appointment to establish care: [facility] - Primary Care [address] [place] [address] [id number] [address] Sepsis Event Note - Focused Exam Vital Signs: Vital Signs Temp Pulse Resp BP Pulse Ox 08/22/19 05:19 36.2 C 101 H 18 168/70 H 95 Date Exam was Performed: 08/22/19 Time Exam was Performed: 06:38 - My Orders Last 24 Hours: My Active Orders 08/22/19 05:24 EKG 12 Lead [EKG Documentation Completion] [RC] STAT - Assessment/Plan Last 24 Hours: My Active Orders 08/22/19 05:24 EKG 12 Lead [EKG Documentation Completion] [RC] STAT
[2019-08-22 05:55] LABS: BLOOD UREA NITROGEN,BUN 20 mg/dL (7.0-18.0); CARBON DIOXIDE,CO2 29.7 mmol/L (21.0-32.0); CHLORIDE,CL 103 mmol/L (98-107); GLUCOSE RANDOM 171 mg/dL (74-106); SODIUM,NA 140 mmol/L (136-148)
--- NOTE | 2019-08-22 06:17 | CR ---
INDICATION: Existent dyspnea for the last 2 weeks. Comparison: Chest radiograph November 26, 2018. TECHNIQUE: Two-view chest. FINDINGS: Normal size cardiac silhouette. Clear lung ballard with no evidence of acute pulmonic infiltrates or CHF. Flattening of the hemidiaphragms with increased AP diameter of the chest; rule out COPD. No pneumothorax or pleural effusion. Impression: Rule out COPD. Dictated by Kailee Ferrari MD @ Aug 22 2019 6:13AM Signed by Dr. Kailee Ferrari @ Aug 22 2019 6:15AM
[2019-08-22 06:39] VITALS: BP 141/61; PULSE 71
== END 2019-08-22 06:40 | disposition home or self-care (01) ==
LOC: MW.ED 05:14
DX: R23.3 Spontaneous ecchymoses (principal); R06.00 Dyspnea, unspecified; I10 Essential (primary) hypertension; E11.9 Type 2 diabetes mellitus without complications; J44.9 Chronic obstructive pulmonary disease, unspecified; E66.9 Obesity, unspecified; Z79.82 Long term (current) use of aspirin; Z79.899 Other long term (current) drug therapy; Z79.84 Long term (current) use of oral hypoglycemic drugs; Z68.33 Body mass index [BMI] 33.0-33.9, adult
CPT/HCPCS: 36415; 71046; 71046-26; 80053; 81003; 84443; 84484; 85025; 85610; 93005; 99284; 99285-25

== ENCOUNTER 2020-01-30 10:46 | Emergency (ER) | payer BC ==
--- NOTE | 2020-01-30 10:57 | EDM.PDOC ---
ED HPI GENERAL MEDICAL PROBLEM - General Chief Complaint: ENT Problem Stated Complaint: EAR LOBES SWOLLEN Time Seen by Provider: 01/30/20 10:54 Source of Information: Reports: Patient History Limitations: Reports: No Limitations - History of Present Illness INITIAL COMMENTS - FREE TEXT/NARRATIVE: 59-year-old male presents for swollen earlobes. Patient notes that last week he had experienced a sore throat, nonproductive cough, generalized malaise. Went to his primary care physician and had negative COVID-19 swab. Was put on azithromycin 5-day course. Notes that symptoms did not improve. This morning noticed that both of his earlobes looked swollen. Denies fevers, difficulty breathing, chest pain - Related Data Allergies Allergy/AdvReac Type Severity Reaction Status Date / Time No Known Allergies Allergy Verified 01/30/20 11:21 Home Meds: Home Meds Aspirin [Bremer Aspirin EC] 81 mg PO DAILY 12/22/14 [History] Cholecalciferol (Vitamin D3) [Vitamin D3] 1 tab PO DAILY 12/22/14 [History] Folic Acid 1 tab PO DAILY 12/22/14 [History] Methotrexate Sodium [Methotrexate] 6 tab PO WEEKLY 12/22/14 [History] amLODIPine Besylate [Amlodipine Besylate] 10 mg PO ACBREAKFAST 12/22/14 [History] Furosemide 40 mg PO DAILY 08/13/19 [History] Gabapentin [Neurontin] 300 mg PO TID 08/13/19 [History] Glimepiride 2 mg PO DAILY 08/13/19 [History] Hydrochlorothiazide/Losartan [Hyzaar 50-12.5 MG] 1 tab PO DAILY 08/13/19 [History] Oxybutynin 5 mg PO TID 08/13/19 [History] Rosuvastatin [Crestor] 20 mg PO BEDTIME 08/13/19 [History] metFORMIN [Glucophage] 1,000 mg PO BID 08/13/19 [History] predniSONE [Prednisone] 10 mg PO DAILY 08/13/19 [History] Aspirin 81 mg PO DAILY 08/22/19 [History] Past Medical History Other HEENT History: Reports deteriation of nasal passages 'lots of nasal drainage', Dicatation reports Obstructive Sleep apnea Cardiovascular History: Reports: Hypertension Respiratory History: Reports: COPD Other Respiratory History: Tobacco dependence 40 yrs Musculoskeletal History: Reports: Other (See Below) Other Musculoskeletal History: hx: fracturing bone in hand x 2, History back injury, Low back pain; Poly arthritis Neurological History: Reports: None Psychiatric History: Reports: None Endocrine/Metabolic History: Reports: Diabetes, Type II Other Hematologic History: Microcytic anemia Immunologic History: Reports: Immunosuppression Other Immunologic History: Rheumatoid arthritis on methotrexate Oncologic (Cancer) History: Reports: Prostate Dermatologic History: Reports: None - Infectious Disease History Infectious Disease History: Reports: Chicken Pox - Past Surgical History HEENT Surgical History: Reports: Adenoidectomy, Tonsillectomy Cardiovascular Surgical History: Reports: None GI Surgical History: Reports: Colonoscopy, EGD Male Surgical History: Reports: Prostate Biopsy, Prostatectomy Social & Family History - Family History Family Medical History: Noncontributory - Caffeine Use Caffeine Use: Reports: Coffee, Soda ED ROS GENERAL - Review of Systems Review Of Systems: Comprehensive ROS is negative, except as noted in HPI. ED EXAM, GENERAL - Physical Exam Exam: See Below Exam Limited By: No Limitations General Appearance: Alert, WD/WN, No Apparent Distress Ears: Normal External Exam, Hearing Grossly Normal Ear Exam: Bilateral Ear: Auricle Normal Throat/Mouth: Normal Voice, No Airway Compromise, Other (erythema of uvuela and oropharynx without uvuela shift or exudates) Head: Atraumatic, Normocephalic Neck: Normal Inspection Respiratory/Chest: No Respiratory Distress, No Accessory Muscle Use Cardiovascular: Normal Peripheral Pulses Extremities: Normal Inspection Neurological: Alert Psychiatric: Normal Affect, Normal Mood Skin Exam: Warm, Dry, Intact, Normal Color Course - Vital Signs Last Recorded V/S: Last Vital Signs Temp 99.4 F 01/30/20 11:21 Pulse 78 01/30/20 11:21 Resp 17 01/30/20 11:21 BP 142/89 H 01/30/20 11:21 Pulse Ox 98 01/30/20 11:21 - Orders/Labs/Meds Orders: Active Orders 24 hr Category Date Time Status CULTURE STREP A CONFIRMATION [] Stat Lab 01/30/20 11:26 Results STREP SCRN A RAPID W CULT CONF [] Stat Lab 01/30/20 11:26 Results - Re-Assessments/Exams Free Text/Narrative Re-Assessment/Exam: 01/30/20 11:16 Will get rapid streptococcal pharyngitis testing. If positive will treat with more appropriate antibiotic. If negative will refer to ENT for further work-up. 01/30/20 12:05 Rapid strep testing is negative. Will discharge patient with ENT follow-up. Departure - Departure Time of Disposition: 12:05 Disposition: Home, Self-Care 01 Condition: Good Clinical Impression: Viral URI - Discharge Information Instructions: Viral Respiratory Infection, [id number] Referrals: Gabriel Francis MD [Primary Care Provider] - Forms: ED Department Discharge Additional Instructions: You can also follow up with an ENT physician: Dr. Cm Forbes [facility], [address], [place] [id number] Dr. Shivam Tiwari [facility] [address] [place] [address] The following information is given to patients seen in the emergency department who are being discharged to home. This information is to outline your options for follow-up care. We provide all patients seen in our emergency department with a follow-up referral. The need for follow-up, as well as the timing and circumstances, are variable depending upon the specifics of your emergency department visit. If you don't have a primary care physician on staff, we will provide you with a referral. We always advise you to contact your personal physician following an emergency department visit to inform them of the circumstance of the visit and for follow-up with them and/or the need for any referrals to a consulting specialist. The emergency department will also refer you to a specialist when appropriate. This referral assures that you have the opportunity for follow-up care with a specialist. All of these measure are taken in an effort to provide you with optimal care, which includes your follow-up. Under all circumstances we always encourage you to contact your private physician who remains a resource for coordinating your care. When calling for follow-up care, please make the office aware that this follow-up is from your recent emergency room visit. If for any reason you are refused follow-up, please contact the [facility] Emergency Department at and asked to speak to the emergency department charge nurse. Please follow up with your primary care physician. If you do not have a primary care physician, see below: [facility] [address] [place] [address] [facility] [address] [facility] [place] [address] Sepsis Event Note (ED) - Focused Exam Vital Signs: Vital Signs Temp Pulse Resp BP Pulse Ox 01/30/20 11:21 99.4 F 78 17 142/89 H 98 - My Orders Last 24 Hours: My Active Orders 01/30/20 11:26 CULTURE STREP A CONFIRMATION [RM] Stat STREP SCRN A RAPID W CULT CONF [RM] Stat - Assessment/Plan Last 24 Hours: My Active Orders 01/30/20 11:26 CULTURE STREP A CONFIRMATION [RM] Stat STREP SCRN A RAPID W CULT CONF [RM] Stat
[2020-01-30 13:08] VITALS: BP 104/51; PULSE 67
== END 2020-01-30 12:24 | disposition home or self-care (01) ==
LOC: MW.ED 10:46
DX: J06.9 Acute upper respiratory infection, unspecified (principal); I10 Essential (primary) hypertension; J44.9 Chronic obstructive pulmonary disease, unspecified; E11.9 Type 2 diabetes mellitus without complications; M06.9 Rheumatoid arthritis, unspecified; Z79.82 Long term (current) use of aspirin; Z79.899 Other long term (current) drug therapy
CPT/HCPCS: 87081; 87880-QW; 99283

== ENCOUNTER 2020-05-22 06:27 | Emergency (ER) | payer BC ==
[2020-05-22 06:42] VITALS: BP 171/77; PULSE 83
--- NOTE | 2020-05-22 07:12 | EDM.PDOC ---
ED HPI GENERAL MEDICAL PROBLEM - General Chief Complaint: ENT Problem Stated Complaint: SORE THROAT, SICK, SWOLLEN GLANDS Time Seen by Provider: 05/22/20 06:55 - History of Present Illness INITIAL COMMENTS - FREE TEXT/NARRATIVE: 59-year-old male with a history of hypertension and diabetes who is presenting with body aches sore throat nonproductive cough and headache that started this morning when he woke up no true fevers or chills no chest pain no abdominal pain no nausea or vomiting. No diarrhea. Symptoms constant without exacerbating alleviating factors radiation or other associated symptoms states he is exposed to many people or could be sick but no known sick contacts. Throat Pain Score (Numeric/FACES): 8 - Related Data Allergies Allergy/AdvReac Type Severity Reaction Status Date / Time No Known Allergies Allergy Verified 05/22/20 06:37 Home Meds: Home Meds Cholecalciferol (Vitamin D3) [Vitamin D3] 1 tab PO DAILY 12/22/14 [History] Folic Acid 1 tab PO DAILY 12/22/14 [History] Methotrexate Sodium [Methotrexate] 6 tab PO WEEKLY 12/22/14 [History] amLODIPine Besylate [Amlodipine Besylate] 10 mg PO ACBREAKFAST 12/22/14 [History] Furosemide 40 mg PO DAILY 08/13/19 [History] Gabapentin [Neurontin] 300 mg PO TID 08/13/19 [History] Oxybutynin 5 mg PO TID 08/13/19 [History] Rosuvastatin [Crestor] 20 mg PO BEDTIME 08/13/19 [History] metFORMIN [Glucophage] 1,000 mg PO BID 08/13/19 [History] Aspirin 81 mg PO DAILY 08/22/19 [History] Losartan/Hydrochlorothiazide [Losartan-HCTZ 100-25 MG] 1 dose PO DAILY 05/22/20 [History] Past Medical History Other HEENT History: Reports deteriation of nasal passages 'lots of nasal drainage', Dicatation reports Obstructive Sleep apnea Cardiovascular History: Reports: High Cholesterol, Hypertension Respiratory History: Reports: COPD, Sleep Apnea Other Respiratory History: Tobacco dependence 40 yrs Gastrointestinal History: Reports: GERD Musculoskeletal History: Reports: Other (See Below) Other Musculoskeletal History: hx: fracturing bone in hand x 2, History back injury, Low back pain; Poly arthritis Neurological History: Reports: None Psychiatric History: Reports: None Endocrine/Metabolic History: Reports: Diabetes, Type II Other Hematologic History: Microcytic anemia Immunologic History: Reports: Immunosuppression Other Immunologic History: Rheumatoid arthritis on methotrexate Oncologic (Cancer) History: Reports: Prostate Dermatologic History: Reports: None - Infectious Disease History Infectious Disease History: Reports: Chicken Pox, Measles - Past Surgical History HEENT Surgical History: Reports: Adenoidectomy, Tonsillectomy Cardiovascular Surgical History: Reports: None GI Surgical History: Reports: Colonoscopy, EGD Male Surgical History: Reports: Prostate Biopsy, Prostatectomy Social & Family History - Family History Family Medical History: No Pertinent Family History - Tobacco Use Tobacco Use Status *Q: Current Some Day Tobacco User Years of Tobacco use: 40 Packs/Tins Daily: 0.2 - Caffeine Use Caffeine Use: Reports: Coffee - Recreational Drug Use Recreational Drug Use: No ED ROS GENERAL - Review of Systems Review Of Systems: See Below Free Text/Narrative/Comment: General: No fever. Skin: No rash. Eyes: No vision problems. ENT: Per HPI Neck: No neck stiffness. Respiratory: Per HPI Cardiac: No chest pain. Gastrointestinal: No nausea, vomiting or abdominal pain. Musculoskeletal: Per HPI Neurologic: No headache. ED EXAM, GENERAL - Physical Exam Exam: See Below Free Text/Narrative:: General Appearance: No acute distress, appears comfortable Skin: No rash HEENT: Normocephalic/atraumatic, sclera anicteric, mucous membranes moist, posterior oropharynx erythematous without white plaques, uvula midline, no submental or sublingual swelling, no trismus Neck: Normal range of motion Chest and Lungs: Bilateral breath sounds, clear to auscultation Cardiovascular: Regular rate and rhythm, no murmur Abdomen: Soft, non-tender Musculoskeletal: No edema or tenderness Neurologic: Awake, alert, no obvious deficits, moving all extremities Psychiatric: Appropriate, cooperative Course - Vital Signs Last Recorded V/S: Last Vital Signs Temp 97.2 F 05/22/20 06:37 Pulse 83 05/22/20 06:37 Resp 20 05/22/20 06:37 BP 171/77 H 05/22/20 06:37 Pulse Ox 95 05/22/20 06:37 - Orders/Labs/Meds Labs: Laboratory Tests 05/22/20 05/22/20 Range/Units 07:20 07:20 Influenza Type A RNA NEGATIVE (NEGATIVE) Influenza Type B RNA NEGATIVE (NEGATIVE) SARS-CoV-2 RNA (CAROLINE) NEGATIVE (NEGATIVE) Group A Strep (PCR) NOT DETECTED (NOT DETECT) Departure - Departure Time of Disposition: 08:18 Disposition: Home, Self-Care 01 Condition: Good Clinical Impression: Viral pharyngitis - Discharge Information *PRESCRIPTION DRUG MONITORING PROGRAM REVIEWED*: Not Applicable *COPY OF PRESCRIPTION DRUG MONITORING REPORT IN PATIENT ROSE: Not Applicable Instructions: Pharyngitis Referrals: Gabriel Francis MD [Primary Care Provider] - 1 Week Forms: ED Department Discharge Additional Instructions: Your COVID-19, flu and strep swabs were negative. This means that you likely have a [id number] viral pharyngitis that should run its course over the next several days. Because of your diabetes we did not do a steroid shot today. I encourage you to use the [id number] throat lozenges and sprays as directed on the packaging to help with the throat discomfort. If your symptoms do not improve within the next 7 to 10 days please follow-up with your primary care doctor. The following information is given to patients seen in the emergency department who are being discharged to home. This information is to outline your options for follow-up care. We provide all patients seen in our emergency department with a follow-up referral. The need for follow-up, as well as the timing and circumstances, are variable depending upon the specifics of your emergency department visit. If you don't have a primary care physician on staff, we will provide you with a referral. We always advise you to contact your personal physician following an emergency department visit to inform them of the circumstance of the visit and for follow-up with them and/or the need for any referrals to a consulting specialist. The emergency department will also refer you to a specialist when appropriate. This referral assures that you have the opportunity for follow-up care with a specialist. All of these measure are taken in an effort to provide you with optimal care, which includes your follow-up. Under all circumstances we always encourage you to contact your private physician who remains a resource for coordinating your care. When calling for follow-up care, please make the office aware that this follow-up is from your recent emergency room visit. If for any reason you are refused follow-up, please contact the [facility] Emergency Department at and asked to speak to the emergency department charge nurse. Sepsis Event Note (ED) - Evaluation Sepsis Screening Result: No Definite Risk - Focused Exam Vital Signs: Vital Signs Temp Pulse Resp BP Pulse Ox 05/22/20 06:37 97.2 F 83 20 171/77 H 95 - Assessment/Plan Assessment:: 59-year-old male presenting with signs and symptoms most consistent with viral syndrome versus strep pharyngitis. Given his diabetes history would not provide Decadron out of concern for triggering significant hyperglycemia. Given his symptoms Covid swab will be sent as well. No findings that suggest deep space infection of the head or neck no signs of ORNAMENT MAKER HAND or RPA no sign of Yosef's. No signs of meningitis. Lungs are clear no indication of focal pneumonia his primary complaint is sore throat. 0820: Swabs are negative patient likely with viral pharyngitis return precaution discussed and understood patient discharged.
[2020-05-22 08:13] LABS: CORONAVIRUS COVID-19 NAA NEGATIVE (NEGATIVE); INFLUENZA A NAA NEGATIVE (NEGATIVE); INFLUENZA B NAA NEGATIVE (NEGATIVE)
== END 2020-05-22 08:27 | disposition home or self-care (01) ==
LOC: MW.ED 06:27
DX: J02.9 Acute pharyngitis, unspecified (principal); E78.00 Pure hypercholesterolemia, unspecified; I10 Essential (primary) hypertension; E11.9 Type 2 diabetes mellitus without complications; K21.9 Gastro-esophageal reflux disease without esophagitis; Z72.0 Tobacco use; Z79.82 Long term (current) use of aspirin; Z79.84 Long term (current) use of oral hypoglycemic drugs; Z79.899 Other long term (current) drug therapy; Z20.822 Contact with and (suspected) exposure to COVID-19
CPT/HCPCS: 0240U; 87651; 99283

== ENCOUNTER 2021-03-11 05:37 | Emergency (ER) | payer BC ==
[2021-03-11] MEDS ORDERED: Sodium Chloride 0.9% 10 ML Syringe FLUSH PRN (05:49)
[2021-03-11] MEDS ORDERED: Sodium Chloride 0.9% 2.5 ML Syringe FLUSH PRN (05:49)
--- NOTE | 2021-03-11 05:51 | EDM.PDOC ---
ED HPI GENERAL MEDICAL PROBLEM - General Chief Complaint: Chest Pain Stated Complaint: CHEST PAIN, RIGHT HAND GOING NUMB Time Seen by Provider: 03/11/21 06:40 - History of Present Illness INITIAL COMMENTS - FREE TEXT/NARRATIVE: History of present illness: [] Patient started having chest pain about midnight. He has 15-22nd episodes off and on every 1/2 hour or so. Its associated with nausea. There is little bit of shortness of breath. Is not worse with exertion. Nothing can do brings it on. There is no diaphoresis. The patient smokes occasionally, is diabetic, is treated for hypertension high cholesterol. When the pain hits it is sharp and severe. Review of systems: As per history of present illness and below otherwise all systems reviewed and negative. Past medical history: As per history of present illness and as reviewed below otherwise noncontributory. Surgical history: As per history of present illness and as reviewed below otherwise noncontributory. Social history: No reported history of drug or alcohol abuse. Family history: As per history of present illness and as reviewed below otherwise noncontributory. Physical exam: Constitutional - well developed, well-nourished and in no acute distress HEENT - normocephalic, no evidence of trauma - external nose and mouth normal - no mass in neck and no JVD - mucosae moist EYES - full EOM, PERRL, no icterus - no evidence of inflammation, injection, or drainage Respiratory - no respiratory distress, equal bilateral expansion, lungs clear to auscultation and no abnormal lung sounds Cardiovascular - Regular Rhythm with S1 and S2 appreciated and no murmur, gallop or rub. GI - abdomen slightly tender in the epigastrium-soft without distension or organomegaly - normal bowel sounds - no guard or rebound Musculoskeletal no gross deformity of long bones or joints - no tenderness, swelling or edema Neurologic - Alert and oriented times four - CN II-XII grossly intact - motor sensory and coordination symmetrically normal Psychiatric - appropriate mood and affect with normal thought content Hematologic - No petechiae or purpura - mucosa appropriate color and sclera not pale - normal nail bed color and refill Integument - no rash or evidence of trauma - normal turgor Diagnostics: [] Therapeutics: [] Impression: [] Plan: [] Definitive disposition and diagnosis as appropriate pending reevaluation and review of above. - Related Data Allergies Allergy/AdvReac Type Severity Reaction Status Date / Time No Known Allergies Allergy Verified 03/11/21 05:52 Home Meds: Home Meds Cholecalciferol (Vitamin D3) [Vitamin D3] 1 tab PO DAILY 12/22/14 [History] Folic Acid 1 tab PO DAILY 12/22/14 [History] Methotrexate Sodium [Methotrexate] 6 tab PO WEEKLY 12/22/14 [History] amLODIPine Besylate [Amlodipine Besylate] 10 mg PO ACBREAKFAST 12/22/14 [History] Furosemide 40 mg PO DAILY 08/13/19 [History] Gabapentin [Neurontin] 300 mg PO TID 08/13/19 [History] Oxybutynin 5 mg PO TID 08/13/19 [History] Rosuvastatin [Crestor] 20 mg PO BEDTIME 08/13/19 [History] metFORMIN [Glucophage] 1,000 mg PO BID 08/13/19 [History] Aspirin 81 mg PO DAILY 08/22/19 [History] Losartan/Hydrochlorothiazide [Losartan-HCTZ 100-25 MG] 1 dose PO DAILY 05/22/20 [History] Past Medical History Other HEENT History: Reports deteriation of nasal passages 'lots of nasal drainage', Dicatation reports Obstructive Sleep apnea Cardiovascular History: Reports: High Cholesterol, Hypertension Respiratory History: Reports: COPD, Sleep Apnea Other Respiratory History: Tobacco dependence 40 yrs Gastrointestinal History: Reports: GERD Musculoskeletal History: Reports: Other (See Below) Other Musculoskeletal History: hx: fracturing bone in hand x 2, History back injury, Low back pain; Poly arthritis Neurological History: Reports: None Psychiatric History: Reports: None Endocrine/Metabolic History: Reports: Diabetes, Type II Other Hematologic History: Microcytic anemia Immunologic History: Reports: Immunosuppression Other Immunologic History: Rheumatoid arthritis on methotrexate Oncologic (Cancer) History: Reports: Prostate Dermatologic History: Reports: None - Infectious Disease History Infectious Disease History: Reports: Chicken Pox, Measles - Past Surgical History HEENT Surgical History: Reports: Adenoidectomy, Tonsillectomy Cardiovascular Surgical History: Reports: None GI Surgical History: Reports: Colonoscopy, EGD Male Surgical History: Reports: Prostate Biopsy, Prostatectomy Social & Family History - Family History Family Medical History: No Pertinent Family History - Caffeine Use Caffeine Use: Reports: Coffee ED ROS GENERAL - Review of Systems Review Of Systems: Comprehensive ROS is negative, except as noted in HPI. ED EXAM, GENERAL - Physical Exam Exam: See Below Free Text/Narrative:: My physical exam is in the HPI #1 Interpretation EKG Interpretation Comments: EKG done 03/11/2021 at 5:38 AM shows a sinus rhythm with a heart rate of 83 a AR 173 and axis 59 QT duration [address] and T normal impression normal EKG Course - Vital Signs Last Recorded V/S: Last Vital Signs Temp 36.8 C 03/11/21 05:48 Pulse 81 03/11/21 05:48 Resp 19 03/11/21 05:48 BP 167/84 H 03/11/21 05:48 Pulse Ox 96 03/11/21 05:48 - Orders/Labs/Meds Orders: Active Orders 24 hr Category Date Time Status Sodium Chloride 0.9% [Saline Flush] Med 03/11/21 05:49 Active 10 ml FLUSH ASDIRECTED PRN Sodium Chloride 0.9% [Saline Flush] Med 03/11/21 05:49 Active 2.5 ml FLUSH ASDIRECTED PRN Saline Lock Insert [OM.PC] Stat Oth 03/11/21 05:49 Ordered Medication Orders Sodium Chloride (Sodium Chloride 0.9% 10 Ml Syringe) 10 ml FLUSH ASDIRECTED PRN PRN Reason: Keep Vein Open Sodium Chloride (Sodium Chloride 0.9% 2.5 Ml Syringe) 2.5 ml FLUSH ASDIRECTED PRN PRN Reason: Keep Vein Open Labs: Laboratory Tests 03/11/21 03/11/21 03/11/21 Range/Units 05:43 05:43 05:43 WBC 7.64 (4.0-11.0) K/uL RBC 5.12 (4.50-5.90) M/uL Hgb 13.5 (13.0-17.0) g/dL Hct 41.3 (38.0-50.0) % MCV 80.7 (80.0-98.0) fL MCH 26.4 L (27.0-32.0) pg MCHC 32.7 (31.0-37.0) g/dL RDW Std Deviation 46.4 (28.0-62.0) fl RDW Coeff of Oneyda 16 H (11.0-15.0) % Plt Count 285 (150-400) K/uL MPV 10.10 (7.40-12.00) fL Neut % (Auto) 70.3 (48.0-80.0) % Lymph % (Auto) 16.0 (16.0-40.0) % Crook % (Auto) 10.9 (0.0-15.0) % Eos % (Auto) 2.1 (0.0-7.0) % Baso % (Auto) 0.7 (0.0-1.5) % Neut # (Auto) 5.4 (1.4-5.7) K/uL Lymph # (Auto) 1.2 (0.6-2.4) K/uL Crook # (Auto) 0.8 (0.0-0.8) K/uL Eos # (Auto) 0.2 (0.0-0.7) K/uL Baso # (Auto) 0.1 (0.0-0.1) K/uL Nucleated RBC % 0.0 /100WBC Nucleated RBCs # 0 K/uL Sodium 142 (136-148) mmol/L Potassium 3.6 (3.5-5.1) mmol/L Chloride 103 (98-107) mmol/L Carbon Dioxide 31.0 (21.0-32.0) mmol/L BUN 16 (7.0-18.0) mg/dL Creatinine 0.7 L (0.8-1.3) mg/dL Est Cr Clr Drug Dosing 109.42 mL/min Estimated GFR (MDRD) > 60.0 ml/min Glucose 131 H (74-106) mg/dL Calcium 8.9 (8.5-10.1) mg/dL Total Bilirubin 0.4 (0.2-1.0) mg/dL AST 32 (15-37) IU/L ALT 40 (14-63) IU/L Alkaline Phosphatase 102 (46-116) U/L Troponin I < 0.050 (0.000-0.056) ng/mL Total Protein 7.5 (6.4-8.2) g/dL Albumin 3.9 (3.4-5.0) g/dL Globulin 3.6 (2.6-4.0) g/dL Albumin/Globulin Ratio 1.1 (0.9-1.6) Lipase 94 (73-393) U/L SARS-CoV-2 RNA (CAROLINE) NEGATIVE (NEGATIVE) Meds: Medications Generic Name Dose Route Start Last Admin Trade Name Freq PRN Reason Stop Dose Admin Sodium Chloride 10 ml 03/11/21 05:49 Sodium Chloride 0.9% 10 Ml Syringe FLUSH ASDIRECTED PRN Keep Vein Open Sodium Chloride 2.5 ml 03/11/21 05:49 Sodium Chloride 0.9% 2.5 Ml Syringe FLUSH ASDIRECTED PRN Keep Vein Open Discontinued Medications Generic Name Dose Route Start Last Admin Trade Name Freq PRN Reason Stop Dose Admin Aspirin 243 mg 03/11/21 05:54 03/11/21 05:58 Aspirin 81 Mg Tab.Chew PO 03/11/21 05:55 243 mg ONETIME ONE Administration Departure - Departure Time of Disposition: 06:50 Disposition: Home, Self-Care 01 Condition: Good Clinical Impression: Chest wall pain - Discharge Information Instructions: Chest Wall Pain, [id number] Forms: ED Department Discharge Additional Instructions: Rest, reduce stress, use [id number] nonsteroidal anti-inflammatory medicine such as ibuprofen or naproxen for pain. Heat to the chest wall will probably help. Getting more rest relative to your activity level will be the most beneficial. [facility] - Primary [facility] [address] [place] [address] [place] [address] The following information is given to patients seen in the emergency department who are being discharged to home. This information is to outline your options for follow-up care. We provide all patients seen in our emergency department with a follow-up referral. The need for follow-up, as well as the timing and circumstances, are variable depending upon the specifics of your emergency department visit. If you don't have a primary care physician on staff, we will provide you with a referral. We always advise you to contact your personal physician following an emergency department visit to inform them of the circumstance of the visit and for follow-up with them and/or the need for any referrals to a consulting specialist. The emergency department will also refer you to a specialist when appropriate. This referral assures that you have the opportunity for follow-up care with a specialist. All of these measure are taken in an effort to provide you with optimal care, which includes your follow-up. Under all circumstances we always encourage you to contact your private physician who remains a resource for coordinating your care. When calling for follow-up care, please make the office aware that this follow-up is from your recent emergency room visit. If for any reason you are refused follow-up, please contact the [facility] Emergency Department at and asked to speak to the emergency department charge nurse. Sepsis Event Note (ED) - Focused Exam Vital Signs: Vital Signs Temp Pulse Resp BP Pulse Ox 03/11/21 05:48 36.8 C 81 19 167/84 H 96 - My Orders Last 24 Hours: My Active Orders 03/11/21 05:49 Sodium Chloride 0.9% [Saline Flush] 10 ml FLUSH ASDIRECTED PRN Sodium Chloride 0.9% [Saline Flush] 2.5 ml FLUSH ASDIRECTED PRN Saline Lock Insert [OM.PC] Stat - Assessment/Plan Last 24 Hours: My Active Orders 03/11/21 05:49 Sodium Chloride 0.9% [Saline Flush] 10 ml FLUSH ASDIRECTED PRN Sodium Chloride 0.9% [Saline Flush] 2.5 ml FLUSH ASDIRECTED PRN Saline Lock Insert [OM.PC] Stat
[2021-03-11] MEDS ORDERED: Aspirin 81 MG Tab.Chew PO ONE (05:54)
[2021-03-11 06:12] LABS: BLOOD UREA NITROGEN,BUN 16 mg/dL (7.0-18.0); CHLORIDE,CL 103 mmol/L (98-107); GLUCOSE RANDOM 131 mg/dL (74-106); LIPASE 94 U/L (73-393); POTASSIUM,K 3.6 mmol/L (3.5-5.1); SODIUM,NA 142 mmol/L (136-148)
--- NOTE | 2021-03-11 06:12 | CR ---
INDICATION: Chest pain. TECHNIQUE: Chest 1 views. COMPARISON: 08/22/2019. FINDINGS: Cardiovascular and mediastinum: Heart size and vasculature are normal in caliber and appearance. Lungs and pleural spaces: Lungs are clear. No sign of infiltrate or mass. No sign of pleural effusion. No pneumothorax. Bones and soft tissues: No significant findings. IMPRESSION: No acute findings and no significant changes from the prior exam. No finding to explain chest pain. Dictated by Gus Verma MD @ 03/11/2021 6:10:52 AM (Electronically Signed)
[2021-03-11] MEDS ORDERED: Ketorolac 30 MG/ML SDV IVPUSH ONE (06:38)
[2021-03-11 06:46] VITALS: BP 146/66; PULSE 74
== END 2021-03-11 07:05 | disposition home or self-care (01) ==
LOC: MW.ED 05:37
DX: R07.89 Other chest pain (principal); E78.00 Pure hypercholesterolemia, unspecified; I10 Essential (primary) hypertension; J44.9 Chronic obstructive pulmonary disease, unspecified; E11.9 Type 2 diabetes mellitus without complications; M06.9 Rheumatoid arthritis, unspecified; Z20.822 Contact with and (suspected) exposure to COVID-19; Z79.82 Long term (current) use of aspirin; Z79.84 Long term (current) use of oral hypoglycemic drugs; Z79.899 Other long term (current) drug therapy
CPT/HCPCS: 71045; 80053; 83690; 84484; 85025; 87635; 93005; 96374; 99285; A9270; J1885; U0002

== ENCOUNTER 2021-09-20 08:28 | Day surgery (SDC) | payer BC ==
[~2021-09-20 08:28] MED LIST: Lactated Ringers 1,000 ML IV SCH
[2021-09-20] MEDS ORDERED: fentaNYL 100 MCG/2 ML SDV ONE (08:43)
[2021-09-20] MEDS ORDERED: Propofol 200 MG/20 ML SDV ONE ×2 (08:43→11:48)
[2021-09-20] MEDS ORDERED: Lidocaine 2% 5 ML SDV ONE (08:47)
[2021-09-20] MEDS ORDERED: Ketamine 500 mg/10 ML MDV ONE (09:11)
[2021-09-20] MEDS ORDERED: Lactated Ringers 1,000 ML IV SCH (12:30)
[2021-09-20 12:47] VITALS: BP 146/67; PULSE 69
== END 2021-09-20 13:03 | disposition home or self-care (01) ==
LOC: MW.SDS 08:28
PROVIDERS: ATTEND Surgery
DX: D12.3 Benign neoplasm of transverse colon (principal); K64.9 Unspecified hemorrhoids; R13.10 Dysphagia, unspecified; K29.50 Unspecified chronic gastritis without bleeding; K21.9 Gastro-esophageal reflux disease without esophagitis; K31.89 Other diseases of stomach and duodenum; J44.9 Chronic obstructive pulmonary disease, unspecified; I25.10 Atherosclerotic heart disease of native coronary artery without angina pectoris; E78.00 Pure hypercholesterolemia, unspecified; I10 Essential (primary) hypertension; G47.33 Obstructive sleep apnea (adult) (pediatric); M62.08 Separation of muscle (nontraumatic), other site; E66.9 Obesity, unspecified; E11.9 Type 2 diabetes mellitus without complications; Z79.899 Other long term (current) drug therapy; Z79.82 Long term (current) use of aspirin; Z98.890 Other specified postprocedural states; Z87.891 Personal history of nicotine dependence; Z85.46 Personal history of malignant neoplasm of prostate; Z68.35 Body mass index [BMI] 35.0-35.9, adult
CPT/HCPCS: 43239; 45380; 82947; J2704; J3010; J3490; J7120

== ENCOUNTER 2022-12-27 06:30 | Emergency (ER) | payer BC ==
[2022-12-27] MEDS ORDERED: Acetaminophen 500 MG Tab PO ONE (07:11)
[2022-12-27] MEDS ORDERED: Sodium Chloride 0.9% 10 ML Syringe FLUSH PRN (07:11)
[2022-12-27] MEDS ORDERED: Sodium Chloride 0.9% 2.5 ML Syringe FLUSH PRN (07:11)
[2022-12-27 07:27] LABS: BASOPHILS ABSOLUTE AUTO 0.05 K/uL (0.00-0.20); BASOPHILS PERCENT AUTO 0.6 % (0.0-1.0); EOSINOPHILS ABSOLUTE AUTO 0.15 K/uL (0.00-0.45); EOSINOPHILS PERCENT AUTO 1.7 % (0.0-6.0); HEMATOCRIT 37.8 % (42.0-52.0); HEMOGLOBIN 12.9 g/dL (14.0-18.0); LYMPHOCYTES ABSOLUTE AUTO 1.02 K/uL (1.00-4.80); LYMPHOCYTES PERCENT AUTO 11.6 % (24.0-44.0); MEAN CORPUSCULAR HEMOGLOBIN 27.9 pg (28.0-32.0); MEAN CORPUSCULAR HGB CONC 34.1 g/dL (32.0-36.0); MEAN CORPUSCULAR VOLUME 81.8 fL (83.0-99.0); MEAN PLATELET VOLUME 9.9 fL (9.4-12.4); MONOCYTES ABSOLUTE AUTO 0.86 K/uL (0.00-0.80); MONOCYTES PERCENT AUTO 9.7 % (0.0-8.0); NEUTROPHILS ABSOLUTE AUTO 6.7 K/uL (1.8-7.7); NEUTROPHILS PERCENT AUTO 75.9 % (41.0-71.0); PLATELET COUNT,PLT 255 K/uL (150-400); RED BLOOD CELL COUNT 4.62 M/uL (4.52-5.90); WHITE BLOOD CELL COUNT,WBC 8.83 K/uL (3.9-11.3)
[2022-12-27 07:29] LABS: APPEARANCE,URINE CLEAR; BILIRUBIN,URINE NEGATIVE (NEGATIVE); COLOR,URINE YELLOW; GLUCOSE,URINE NEGATIVE (NEGATIVE); KETONES,URINE NEGATIVE (NEGATIVE); LEUKOCYTE ESTERASE,URINE NEGATIVE (NEGATIVE); NITRITE,URINE NEGATIVE (NEGATIVE); OCCULT BLOOD,URINE NEGATIVE (NEGATIVE); PH,URINE 5.5 (5.0-8.0); PROTEIN,URINE NEGATIVE (NEGATIVE); UROBILINOGEN,URINE 0.2 EU/dL (<2.0)
[2022-12-27 07:53] LABS: A/G RATIO 1.1 (0.9-1.6); ALBUMIN 3.6 g/dL (3.4-5.0); BILIRUBIN TOTAL 0.4 mg/dL (0.2-1.0); CALCIUM 9.1 mg/dL (8.5-10.1); CARBON DIOXIDE,CO2 25.2 mmol/L (21.0-32.0); CREATININE 0.6 mg/dL (0.8-1.3); EST CRCL DRUG DOSING (CG) 120.33 mL/min; POTASSIUM,K 3.5 mmol/L (3.5-5.1); PROTEIN TOTAL,TP 6.9 g/dL (6.4-8.2)
[2022-12-27] MEDS ORDERED: Ketorolac 30 MG/ML SDV IVPUSH ONE (08:03)
[2022-12-27 09:30] VITALS: BP 140/82; PULSE 64
[2022-12-27] MEDS ORDERED: Iopamidol 755 Mg/ML 100 ML Bottle IVPUSH ONE (10:21)
== END 2022-12-27 09:28 | disposition home or self-care (01) ==
LOC: MW.ED 06:30
DX: N30.91 Cystitis, unspecified with hematuria (principal); E27.8 Other specified disorders of adrenal gland; D18.03 Hemangioma of intra-abdominal structures; I10 Essential (primary) hypertension; E78.00 Pure hypercholesterolemia, unspecified; J44.9 Chronic obstructive pulmonary disease, unspecified; E11.9 Type 2 diabetes mellitus without complications; E66.9 Obesity, unspecified; Z87.891 Personal history of nicotine dependence; Z79.82 Long term (current) use of aspirin; Z79.84 Long term (current) use of oral hypoglycemic drugs; Z79.899 Other long term (current) drug therapy
CPT/HCPCS: 36415; 51798; 74177; 80053; 81003; 83690; 85025; 96374; 99284; A9270; J1885; J3490; Q9967

== ENCOUNTER 2023-03-05 05:25 | Emergency (ER) | payer SELFPAY ==
[2023-03-05] MEDS: Ketorolac 30 MG/ML SDV IVPUSH ONE (05:42)
[2023-03-05] MEDS: Sodium Chloride 0.9% 2.5 ML Syringe FLUSH PRN (05:44)
[2023-03-05] MEDS: Sodium Chloride 0.9% 500 ML IV SCH (05:44)
[2023-03-05] MEDS: Sodium Chloride 0.9% 10 ML Syringe FLUSH PRN (05:44)
[2023-03-05 06:00] LABS: BASOPHILS ABSOLUTE AUTO 0.04 K/uL (0.00-0.20); BASOPHILS PERCENT AUTO 0.4 % (0.0-1.0); EOSINOPHILS ABSOLUTE AUTO 0.06 K/uL (0.00-0.45); EOSINOPHILS PERCENT AUTO 0.5 % (0.0-6.0); HEMOGLOBIN 13.1 g/dL (14.0-18.0); IMMATURE GRAN ABSOLUTE AUTO 0.04 K/uL (0.00-0.05); IMMATURE GRAN PERCENT AUTO 0.4 % (0.0-0.4); LYMPHOCYTES ABSOLUTE AUTO 0.68 K/uL (1.00-4.80); LYMPHOCYTES PERCENT AUTO 6.1 % (24.0-44.0); MEAN CORPUSCULAR HEMOGLOBIN 27.2 pg (28.0-32.0); MEAN CORPUSCULAR HGB CONC 33.6 g/dL (32.0-36.0); MEAN CORPUSCULAR VOLUME 81.1 fL (83.0-99.0); MEAN PLATELET VOLUME 10.4 fL (9.4-12.4); MONOCYTES ABSOLUTE AUTO 0.97 K/uL (0.00-0.80); MONOCYTES PERCENT AUTO 8.7 % (0.0-8.0); NEUTROPHILS PERCENT AUTO 83.9 % (41.0-71.0); PLATELET COUNT,PLT 290 K/uL (150-400); RED BLOOD CELL COUNT 4.81 M/uL (4.52-5.90); WHITE BLOOD CELL COUNT,WBC 11.09 K/uL (3.9-11.3)
[2023-03-05 06:11] LABS: APPEARANCE,URINE CLEAR; BILIRUBIN,URINE NEGATIVE (NEGATIVE); COLOR,URINE YELLOW; GLUCOSE,URINE NEGATIVE (NEGATIVE); KETONES,URINE NEGATIVE (NEGATIVE); LEUKOCYTE ESTERASE,URINE NEGATIVE (NEGATIVE); NITRITE,URINE NEGATIVE (NEGATIVE); OCCULT BLOOD,URINE LARGE (NEGATIVE); PROTEIN,URINE NEGATIVE (NEGATIVE); UROBILINOGEN,URINE 0.2 EU/dL (<2.0)
[2023-03-05 06:23] LABS: BACTERIA,URINE FEW (NEGATIVE); EPITHELIAL CELLS,URINE RARE (NONE-FEW); MUCUS,URINE LIGHT (NONE-MOD); WBC,URINE 0-1 (0-5/HPF)
[2023-03-05 06:28] LABS: A/G RATIO 1.1 (0.9-1.6); ALBUMIN 3.6 g/dL (3.4-5.0); BILIRUBIN TOTAL 0.6 mg/dL (0.2-1.0); CALCIUM 9.2 mg/dL (8.5-10.1); CARBON DIOXIDE,CO2 23.9 mmol/L (21.0-32.0); CREATININE 1.4 mg/dL (0.8-1.3); EST CRCL DRUG DOSING (CG) 51.57 mL/min; POTASSIUM,K 3.4 mmol/L (3.5-5.1)
[2023-03-05 06:47] VITALS: BP 160/66; PULSE 75
== END 2023-03-05 06:52 | disposition home or self-care (01) ==
LOC: MW.ED 05:25
DX: N20.0 Calculus of kidney (principal); I10 Essential (primary) hypertension; E78.00 Pure hypercholesterolemia, unspecified; J44.9 Chronic obstructive pulmonary disease, unspecified; E11.9 Type 2 diabetes mellitus without complications; Z79.82 Long term (current) use of aspirin; Z79.84 Long term (current) use of oral hypoglycemic drugs; Z79.899 Other long term (current) drug therapy
CPT/HCPCS: 36415; 74176; 80053; 81001; 85025; 87086; 96374; 99284; J1885; J3490; J7040

== ENCOUNTER 2023-10-18 07:41 | Emergency (ER) | payer OTHER ==
[2023-10-18 08:31] VITALS: PULSE 62
[2023-10-18 08:37] VITALS: BP 140/65
== END 2023-10-18 08:37 | disposition home or self-care (01) ==
LOC: MW.ED 07:41
DX: Z00.00 Encounter for general adult medical examination without abnormal findings (principal); I10 Essential (primary) hypertension; E78.00 Pure hypercholesterolemia, unspecified; E66.9 Obesity, unspecified; E11.9 Type 2 diabetes mellitus without complications; Z79.82 Long term (current) use of aspirin; Z79.84 Long term (current) use of oral hypoglycemic drugs; Z79.899 Other long term (current) drug therapy; Z68.33 Body mass index [BMI] 33.0-33.9, adult
CPT/HCPCS: 99283

== ENCOUNTER 2024-04-14 05:00 | Emergency (ER) | payer OTHER ==
[2024-04-14] MEDS: Acetaminophen 325 MG Tab PO ONE (05:19)
[2024-04-14] MEDS: Sodium Chloride 0.9% 10 ML Syringe FLUSH PRN (05:20)
[2024-04-14] MEDS: Sodium Chloride 0.9% 2.5 ML Syringe FLUSH PRN (05:20)
[2024-04-14 05:41] LABS: BASOPHILS ABSOLUTE AUTO 0.04 K/uL (0.00-0.20); BASOPHILS PERCENT AUTO 0.5 % (0.0-1.0); EOSINOPHILS ABSOLUTE AUTO 0.17 K/uL (0.00-0.45); EOSINOPHILS PERCENT AUTO 2.1 % (0.0-6.0); HEMATOCRIT 38.2 % (42.0-52.0); HEMOGLOBIN 12.7 g/dL (14.0-18.0); IMMATURE GRAN ABSOLUTE AUTO 0.02 K/uL (0.00-0.05); IMMATURE GRAN PERCENT AUTO 0.3 % (0.0-0.4); LYMPHOCYTES ABSOLUTE AUTO 1.01 K/uL (1.00-4.80); LYMPHOCYTES PERCENT AUTO 12.7 % (24.0-44.0); MEAN CORPUSCULAR HEMOGLOBIN 26.4 pg (28.0-32.0); MEAN CORPUSCULAR HGB CONC 33.2 g/dL (32.0-36.0); MEAN CORPUSCULAR VOLUME 79.4 fL (83.0-99.0); MONOCYTES ABSOLUTE AUTO 0.61 K/uL (0.00-0.80); MONOCYTES PERCENT AUTO 7.7 % (0.0-8.0); NEUTROPHILS PERCENT AUTO 76.7 % (41.0-71.0); PLATELET COUNT,PLT 278 K/uL (150-400); RED BLOOD CELL COUNT 4.81 M/uL (4.52-5.90); WHITE BLOOD CELL COUNT,WBC 7.95 K/uL (3.9-11.3)
[2024-04-14 05:56] LABS: A/G RATIO 1.1 (0.9-1.6); ALBUMIN 3.7 g/dL (3.4-5.0); BILIRUBIN TOTAL 0.6 mg/dL (0.2-1.0); CALCIUM 9.2 mg/dL (8.5-10.1); CARBON DIOXIDE,CO2 24.6 mmol/L (21.0-32.0); CREATININE 0.8 mg/dL (0.8-1.3); EST CRCL DRUG DOSING (CG) 89.06 mL/min; POTASSIUM,K 3.9 mmol/L (3.5-5.1); PROTEIN TOTAL,TP 7.1 g/dL (6.4-8.2)
[2024-04-14] MEDS: Iopamidol 755 MG/ML 500 ML Multipack Bottle IVPUSH STA (06:55)
[2024-04-14 09:07] VITALS: BP 165/56; PULSE 53
== END 2024-04-14 09:08 | disposition home or self-care (01) ==
LOC: MW.ED 05:00
DX: R22.32 Localized swelling, mass and lump, left upper limb (principal); I10 Essential (primary) hypertension; E78.00 Pure hypercholesterolemia, unspecified; J44.9 Chronic obstructive pulmonary disease, unspecified; E11.9 Type 2 diabetes mellitus without complications; E66.9 Obesity, unspecified; Z79.899 Other long term (current) drug therapy; Z79.84 Long term (current) use of oral hypoglycemic drugs; Z79.82 Long term (current) use of aspirin; Z75.8 Other problems related to medical facilities and other health care; Z68.33 Body mass index [BMI] 33.0-33.9, adult
CPT/HCPCS: 36415; 71260; 80053; 85025; 99283; A9270; Q9967; J3490

== ENCOUNTER 2024-10-17 03:44 | Emergency (ER) | payer MEDICARE, OTHER ==
[2024-10-17] MEDS: cefTRIAXone 2 GM in Water For Injection, Sterile 20 ML IVPUSH ONE (04:08)
[2024-10-17 04:18] LABS: BASOPHILS ABSOLUTE AUTO 0.04 K/uL (0.00-0.20); BASOPHILS PERCENT AUTO 0.3 % (0.0-1.0); EOSINOPHILS ABSOLUTE AUTO 0.19 K/uL (0.00-0.45); EOSINOPHILS PERCENT AUTO 1.6 % (0.0-6.0); IMMATURE GRAN ABSOLUTE AUTO 0.04 K/uL (0.00-0.05); IMMATURE GRAN PERCENT AUTO 0.3 % (0.0-0.4); LYMPHOCYTES ABSOLUTE AUTO 0.61 K/uL (1.00-4.80); LYMPHOCYTES PERCENT AUTO 5.3 % (24.0-44.0); MEAN PLATELET VOLUME 9.4 fL (9.4-12.4); MONOCYTES ABSOLUTE AUTO 1.19 K/uL (0.00-0.80); MONOCYTES PERCENT AUTO 10.3 % (0.0-8.0); NEUTROPHILS ABSOLUTE AUTO 9.51 K/uL (1.80-7.70); NEUTROPHILS PERCENT AUTO 82.2 % (41.0-71.0); NRBC ABSOLUTE 0.00 K/uL (0.00-0.02); NRBC PERCENT 0.0 /100WBC (0.0-0.2); PLATELET COUNT,PLT 259 K/uL (150-400); RED BLOOD CELL COUNT 3.80 M/uL (4.52-5.90); WHITE BLOOD CELL COUNT,WBC 11.58 K/uL (3.9-11.3)
[2024-10-17 04:34] LABS: BLOOD UREA NITROGEN,BUN 17.0 mg/dL (7.0-18.0); CARBON DIOXIDE,CO2 25.2 mmol/L (21.0-32.0); CHLORIDE,CL 105.0 mmol/L (98-107); CREATININE 0.8 mg/dL (0.8-1.3); EST CRCL DRUG DOSING (CG) 87.88 mL/min; GLUCOSE RANDOM 134.0 mg/dL (74-106); POTASSIUM,K 3.3 mmol/L (3.5-5.1); SODIUM,NA 140.0 mmol/L (136-148)
[2024-10-17 04:40] LABS: ESTIMATED GFR 98.0 mL/min (>60)
[2024-10-17 08:15] VITALS: BP 156/73; PULSE 75
== END 2024-10-17 09:23 ==
LOC: MW.ED 03:44
DX: T81.30XA Disruption of wound, unspecified, initial encounter (principal); I10 Essential (primary) hypertension; E11.9 Type 2 diabetes mellitus without complications; E78.00 Pure hypercholesterolemia, unspecified; E66.9 Obesity, unspecified; F17.200 Nicotine dependence, unspecified, uncomplicated; J44.9 Chronic obstructive pulmonary disease, unspecified; Z79.899 Other long term (current) drug therapy; Z79.82 Long term (current) use of aspirin; Z68.32 Body mass index [BMI] 32.0-32.9, adult
CPT/HCPCS: 36415; 80048; 85025; 96374; 96375; 99285; J0696; 99283; J1171